=== PATIENT | female | born 1950 | race Caucasian/White ===

== ENCOUNTER → 2018-01-23 13:59 | Outpatient (CLI) | payer MEDICARE, BC, OTHER, SELFPAY ==
[2018-01-23 17:22] LABS: Absolute Lymphocyte Count 2.62 X10^3/ul (0.83-4.51); Absolute Neutrophil Count 6.2 X10^3/uL (2.0-7.7); Basophil# 0.03 X10^3/uL; Basophil% 0.3 % (0-1); Eosinophil# 0.17 X10^3/uL; Eosinophils% 1.7 % (0-5); Hematocrit 41.9 % (37-47); Hemoglobin 13.7 g/dl (12.0-15.0); Lymphocyte # 2.62 X10^3/ul (4.0); Lymphocyte % 26.9 % (19-41); Mean Corp Hgb Conc 32.7 g/gl (32-36); Mean Corpuscular Hgb 28.1 pg (27.0-32.0); Mean Corpuscular Volume 85.9 fL (81-99); Mean Platelet Vol. 8.9 fl (6.2-12.0); Monocyte# 0.71 X10^3/uL; Monocyte% 7.3 % (0-10); Neutrophil % 63.6 % (47-70); Platelet Count 346 K/mm3 (150-450); RBC Distribution Width SD 43.7 fl (35.1-43.9); Red Blood Count 4.88 M/mm3 (4.2-5.4); White Blood Count 9.8 K/mm3 (4.4-11.0)
[2018-01-23 17:23] LABS: POSITIVE COUNT NO; POSITIVE DIFFERENTIAL NO; POSITIVE MORPHOLOGY NO
[2018-01-23 17:46] LABS: ALB/GLOB Ratio 0.9 RATIO (0.9-2.4); AST(SGOT) 18 U/L (15-37); Alanine Aminotransfer ALT/SGPT 21 U/L (13-56); Albumin, Serum 3.6 g/dL (3.2-5.0); Alkaline Phosphatase 80 U/L (45-117); Anion Gap 11 (5-15); BUN 11 mg/dL (7-18); BUN/Creat Ratio 16.1 RATIO (10-20); Calcium,Total 8.9 mg/dL (8.5-10.1); Chloride 105 mmol/L (98-107); Creatinine, Serum 0.68 mg/dL (0.55-1.02); EST Glomerular Filtration Rate 91 mL/min (>60); Est Glom Filt Rate - Afr Amer 110 mL/min (>60); Globulin 3.9 g/dL (2.2-4.2); Glucose 88 mg/dL (74-106); Potassium 3.9 mmol/L (3.5-5.1); Protein, Total 7.5 g/dL (6.4-8.2); Sodium Level 141 mmol/L (136-145); Thyroid Stim Hormone (TSH) 1.73 uIU/mL (0.358-3.74)
[2018-01-24 08:39] LABS: Vitamin D,25 Hydroxy 55.2 ng/mL (29.95-100.01)
[2018-01-25 11:17] LABS: Hep C Antibodies <0.1 s/co ratio (0.0-0.9)
== END ==
PROVIDERS: Family Provider Family Medicine Geriatric Medicine; PCP Family Medicine Geriatric Medicine; Visit Provider Family Medicine Geriatric Medicine
DX: I10 Essential (primary) hypertension (principal); E55.9 Vitamin D deficiency, unspecified; Z13.89 Encounter for screening for other disorder
CPT/HCPCS: 36415; 80053; 82306; 84443; 85025; 86803

== ENCOUNTER → 2018-04-12 10:46 | Outpatient (CLI) | payer MEDICARE, BC, OTHER, SELFPAY ==
[2018-04-12 12:51] LABS: Anion Gap 7 (5-15); BUN 11 mg/dL (7-18); BUN/Creat Ratio 16.1 RATIO (10-20); Calcium,Total 9.1 mg/dL (8.5-10.1); Chloride 105 mmol/L (98-107); Creatinine, Serum 0.68 mg/dL (0.55-1.02); EST Glomerular Filtration Rate 91 mL/min (>60); Est Glom Filt Rate - Afr Amer 110 mL/min (>60); Glucose 131 mg/dL (74-106); Sodium Level 139 mmol/L (136-145)
[2018-04-12 14:05] LABS: Absolute Lymphocyte Count 2.02 X10^3/ul (0.83-4.51); Absolute Neutrophil Count 6.1 X10^3/uL (2.0-7.7); Basophil# 0.02 X10^3/uL; Basophil% 0.2 % (0-1); Eosinophil# 0.16 X10^3/uL; Eosinophils% 1.7 % (0-5); Hematocrit 44.3 % (37-47); Hemoglobin 14.5 g/dl (12.0-15.0); Lymphocyte # 2.02 X10^3/ul (4.0); Lymphocyte % 22.1 % (19-41); Mean Corp Hgb Conc 32.7 g/gl (32-36); Mean Corpuscular Hgb 28.2 pg (27.0-32.0); Mean Corpuscular Volume 86.2 fL (81-99); Mean Platelet Vol. 9.5 fl (6.2-12.0); Monocyte# 0.86 X10^3/uL; Monocyte% 9.4 % (0-10); Neutrophil # 6.07 X10^3/uL (2.7-7.7); Neutrophil % 66.4 % (47-70); Platelet Count 348 K/mm3 (150-450); RBC Distribution Width CV 14.5 % (11.6-14.6); RBC Distribution Width SD 46.2 fl (35.1-43.9); Red Blood Count 5.14 M/mm3 (4.2-5.4); White Blood Count 9.2 K/mm3 (4.4-11.0)
[2018-04-12 14:07] LABS: POSITIVE COUNT NO; POSITIVE DIFFERENTIAL NO; POSITIVE MORPHOLOGY NO
== END ==
PROVIDERS: Family Provider Family Medicine Geriatric Medicine; PCP Family Medicine Geriatric Medicine; Visit Provider Family Medicine Geriatric Medicine
DX: N39.0 Urinary tract infection, site not specified (principal); N20.0 Calculus of kidney; R10.9 Unspecified abdominal pain; R82.99 Other abnormal findings in urine; E16.2 Hypoglycemia, unspecified
CPT/HCPCS: 36415; 74176; 80048; 85025; 87086; 87088

== ENCOUNTER → 2019-01-23 08:49 | Outpatient (CLI) | payer MEDICARE, BC, OTHER, SELFPAY ==
[2019-01-23 10:47] LABS: Absolute Lymphocyte Count 2.59 X10^3/ul (0.83-4.51); Absolute Neutrophil Count 5.6 X10^3/uL (2.0-7.7); Basophil# 0.02 X10^3/uL; Basophil% 0.2 % (0-1); Eosinophil# 0.12 X10^3/uL; Eosinophils% 1.3 % (0-5); Hemoglobin 15.6 g/dl (12.0-15.0); Lymphocyte # 2.59 X10^3/ul (4.0); Lymphocyte % 28.7 % (19-41); Mean Corp Hgb Conc 33.2 g/gl (32-36); Mean Corpuscular Hgb 28.1 pg (27.0-32.0); Mean Corpuscular Volume 84.7 fL (81-99); Mean Platelet Vol. 9.6 fl (6.2-12.0); Monocyte# 0.68 X10^3/uL; Monocyte% 7.5 % (0-10); Neutrophil # 5.59 X10^3/uL (2.7-7.7); Neutrophil % 61.9 % (47-70); Platelet Count 376 K/mm3 (150-450); RBC Distribution Width SD 42.8 fl (35.1-43.9); Red Blood Count 5.55 M/mm3 (4.2-5.4)
[2019-01-23 10:48] LABS: POSITIVE COUNT NO; POSITIVE DIFFERENTIAL NO; POSITIVE MORPHOLOGY NO
[2019-01-23 11:03] LABS: ALB/GLOB Ratio 0.9 RATIO (0.9-2.4); AST(SGOT) 24 U/L (15-37); Alanine Aminotransfer ALT/SGPT 30 U/L (13-56); Albumin, Serum 3.7 g/dL (3.2-5.0); Alkaline Phosphatase 94 U/L (45-117); Anion Gap 7 (5-15); BUN 10 mg/dL (7-18); BUN/Creat Ratio 13.2 RATIO (10-20); Calcium,Total 8.7 mg/dL (8.5-10.1); Chloride 105 mmol/L (98-107); Creatinine, Serum 0.76 mg/dL (0.55-1.02); EST Glomerular Filtration Rate 81 mL/min (>60); Est Glom Filt Rate - Afr Amer 98 mL/min (>60); Globulin 3.9 g/dL (2.2-4.2); Glucose 162 mg/dL (74-106); Potassium 3.8 mmol/L (3.5-5.1); Protein, Total 7.6 g/dL (6.4-8.2); Sodium Level 138 mmol/L (136-145); Thyroid Stim Hormone (TSH) 2.12 uIU/mL (0.358-3.74)
[2019-01-23 11:15] LABS: Vitamin D,25 Hydroxy 61.2 ng/mL (29.95-100.01)
== END ==
PROVIDERS: Family Provider Family Medicine Geriatric Medicine; PCP Family Medicine Geriatric Medicine; Visit Provider Family Medicine Geriatric Medicine
DX: I10 Essential (primary) hypertension (principal); E55.9 Vitamin D deficiency, unspecified
CPT/HCPCS: 36415; 80053; 82306; 84443; 85025

== ENCOUNTER → 2020-02-10 09:59 | Outpatient (CLI) | payer MEDICARE, BC, OTHER, SELFPAY ==
[2016-12-09 15:53] VITALS: BMI 38.2
[2020-02-10 11:16] LABS: Absolute Lymphocyte Count 2.54 X10^3/uL (0.83-4.51); Absolute Neutrophil Count 5.5 X10^3/uL (2.0-7.7); Basophil# 0.05 X10^3/uL; Basophil% 0.6 % (0-1); Eosinophil# 0.13 X10^3/uL; Eosinophils% 1.5 % (0-5); Hematocrit 45.6 % (37-47); Hemoglobin 15.1 g/dL (12.0-15.0); Lymphocyte # 2.54 X10^3/ul (4.0); Lymphocyte % 28.7 % (19-41); Mean Corp Hgb Conc 33.1 g/dL (32-36); Mean Corpuscular Hgb 29.7 pg (27.0-32.0); Mean Corpuscular Volume 89.8 fL (81-99); Mean Platelet Vol. 9.2 fl (6.2-12.0); Monocyte# 0.53 X10^3/uL; NRBC Flagged by Analyzer 0 % (0-5); Neutrophil # 5.54 X10^3/uL (2.7-7.7); Neutrophil % 62.4 % (47-70); Platelet Count 346 K/mm3 (150-450); RBC Distribution Width CV 13.6 % (11.6-14.6); RBC Distribution Width SD 44.5 fl (35.1-43.9); Red Blood Count 5.08 M/mm3 (4.2-5.4); White Blood Count 8.9 K/mm3 (4.4-11.0)
[2020-02-10 11:44] LABS: Vitamin D,25 Hydroxy 65.8 ng/mL
[2020-02-10 11:57] LABS: AST(SGOT) 24 U/L (15-37); Alanine Aminotransfer ALT/SGPT 30 U/L (13-56); Albumin, Serum 3.7 g/dL (3.2-5.0); Alkaline Phosphatase 69 U/L (45-117); Anion Gap 5 (5-15); BUN 10 mg/dL (7-18); Calcium,Total 9.1 mg/dL (8.5-10.1); Chloride 106 mmol/L (98-107); Creatinine, Serum 0.72 mg/dL (0.55-1.02); EST Glomerular Filtration Rate 86 mL/min (>60); Est Glom Filt Rate - Afr Amer 104 mL/min (>60); Globulin 3.7 g/dL (2.2-4.2); Glucose 197 mg/dL (74-106); Potassium 4.2 mmol/L (3.5-5.1); Protein, Total 7.4 g/dL (6.4-8.2); Sodium Level 138 mmol/L (136-145); Thyroid Stim Hormone (TSH) 2.22 uIU/mL (0.358-3.74)
== END ==
PROVIDERS: PCP Family Medicine Geriatric Medicine; Visit Provider Family Medicine Geriatric Medicine
DX: I10 Essential (primary) hypertension (principal); E55.9 Vitamin D deficiency, unspecified
CPT/HCPCS: 36415; 80053; 82306; 84443; 85025

== ENCOUNTER → 2020-02-13 08:14 | Outpatient (CLI) | payer MEDICARE, BC, OTHER, SELFPAY ==
--- NOTE | 2020-02-13 08:18 | BI_ITS ---
MAMMOGRAPHY - BILATERAL SCREENING REASON FOR EXAM: Female, 70 years old. Routine annual screening examination. PERTINENT HISTORY: Mother with breast cancer. TECHNIQUE: Digital bilateral breast tyron (3D mammographic acquisition) in the CC and MLO projections. 2-D mediolateral oblique (MLO) and craniocaudad (CC) views of both breasts were obtained. CAD: Full Field Digital Mammography with Computer Added Detection was performed. COMPARISON: Comparison is made with prior examination of January 24, 2014 and January 19, 2012 FINDINGS: Breast Composition: There are scattered areas of fibroglandular density. There are no dominant masses or suspicious calcifications. Scattered diffuse bilateral calcifications. These have increased in number as compared to prior study. This most likely represents secretory calcifications. Stable appearance of the bilateral axillary lymph nodes. Stable 2 mm well-defined nodule in the upper lateral aspect of the right breast. No other significant abnormalities are identified. BI/SCREEN MAMM (CAD) W/TYRON BILAT IMPRESSION: Stable bilateral screening mammogram. Yearly follow-up mammogram recommended. (A) ASSESSMENT CATEGORY: BIRADS Category 2: Benign. A letter regarding these results will be sent to the patient by the facility within 30 days. Approximately 10% of breast cancers are not detected by mammography. A normal mammogram should not delay biopsy of a clinically suspicious abnormality. [id number] Electronically Signed: Johnathan Watson, at 9:47 EDT , Service support ,
== END ==
PROVIDERS: PCP Family Medicine Geriatric Medicine; Referring Provider Family Medicine Geriatric Medicine; Visit Provider Family Medicine Geriatric Medicine
DX: Z12.31 Encounter for screening mammogram for malignant neoplasm of breast (principal); Z80.3 Family history of malignant neoplasm of breast
CPT/HCPCS: 77063; 77067

== ENCOUNTER 2020-03-11 08:26 | Outpatient (RCR) | payer MEDICARE, BC, OTHER, SELFPAY | END 2020-03-27 23:59 | LOC: DC 08:26 | PROVIDERS: PCP Family Medicine Geriatric Medicine; Visit Provider Family Medicine Geriatric Medicine | DX: Z71.3 Dietary counseling and surveillance (principal); E11.9 Type 2 diabetes mellitus without complications | CPT/HCPCS: G0108 ==

== ENCOUNTER 2020-03-31 09:04 | Outpatient (RCR) | payer MEDICARE, BC, OTHER, SELFPAY ==
[2016-12-09 15:53] VITALS: BMI 38.2
== END 2020-04-27 23:59 ==
LOC: DC 09:04
PROVIDERS: PCP Family Medicine Geriatric Medicine; Visit Provider Family Medicine Geriatric Medicine
DX: Z71.3 Dietary counseling and surveillance (principal); E11.9 Type 2 diabetes mellitus without complications
CPT/HCPCS: 97802

== ENCOUNTER → 2020-05-12 11:53 | Outpatient (CLI) | payer MEDICARE, OTHER, SELFPAY ==
[2016-12-09 15:53] VITALS: BMI 38.2
[2020-05-12 12:56] LABS: Absolute Lymphocyte Count 2.47 X10^3/uL (0.83-4.51); Absolute Neutrophil Count 5.2 X10^3/uL (2.0-7.7); Basophil# 0.04 X10^3/uL; Basophil% 0.5 % (0-1); Eosinophil# 0.12 X10^3/uL; Eosinophils% 1.4 % (0-5); Hematocrit 42.7 % (37-47); Hemoglobin 14.3 g/dL (12.0-15.0); Lymphocyte # 2.47 X10^3/ul (4.0); Lymphocyte % 28.2 % (19-41); Mean Corp Hgb Conc 33.5 g/dL (32-36); Mean Corpuscular Hgb 29.3 pg (27.0-32.0); Mean Corpuscular Volume 87.5 fL (81-99); Mean Platelet Vol. 9.6 fl (6.2-12.0); Monocyte# 0.94 X10^3/uL; Monocyte% 10.7 % (0-10); NRBC Flagged by Analyzer 0 % (0-5); Neutrophil # 5.16 X10^3/uL (2.7-7.7); Neutrophil % 58.9 % (47-70); Platelet Count 331 K/mm3 (150-450); RBC Distribution Width CV 13.3 % (11.6-14.6); RBC Distribution Width SD 42.9 fl (35.1-43.9); Red Blood Count 4.88 M/mm3 (4.2-5.4); White Blood Count 8.8 K/mm3 (4.4-11.0)
[2020-05-12 13:11] LABS: Vitamin D,25 Hydroxy 44.2 ng/mL
[2020-05-12 13:29] LABS: AST(SGOT) 19 U/L (15-37); Alanine Aminotransfer ALT/SGPT 27 U/L (13-56); Albumin, Serum 3.7 g/dL (3.2-5.0); Alkaline Phosphatase 71 U/L (45-117); Anion Gap 5 (5-15); BUN 10 mg/dL (7-18); BUN/Creat Ratio 16.3 RATIO (10-20); Calcium,Total 9.2 mg/dL (8.5-10.1); Chloride 107 mmol/L (98-107); Creatinine, Serum 0.61 mg/dL (0.55-1.02); EST Glomerular Filtration Rate 102 mL/min (>60); Est Glom Filt Rate - Afr Amer 124 mL/min (>60); Globulin 3.7 g/dL (2.2-4.2); Glucose 94 mg/dL (74-106); Protein, Total 7.4 g/dL (6.4-8.2); Sodium Level 138 mmol/L (136-145)
== END ==
PROVIDERS: PCP Family Medicine Geriatric Medicine; Visit Provider Family Medicine Geriatric Medicine
DX: E55.9 Vitamin D deficiency, unspecified (principal); I10 Essential (primary) hypertension
CPT/HCPCS: 36415; 80053; 82306; 84443; 85025

== ENCOUNTER 2020-05-13 09:00 | Outpatient (RCR) | payer MEDICARE, OTHER, SELFPAY ==
[2016-12-09 15:53] VITALS: BMI 38.2
== END 2020-05-27 23:59 ==
LOC: DC 09:00
PROVIDERS: PCP Family Medicine Geriatric Medicine; Visit Provider Family Medicine Geriatric Medicine
DX: Z71.3 Dietary counseling and surveillance (principal); E11.9 Type 2 diabetes mellitus without complications
CPT/HCPCS: 97803; G0108

== ENCOUNTER 2020-05-25 16:05 | Emergency (ER) | payer MEDICARE, OTHER, SELFPAY ==
[2020-05-25 16:06] VITALS: BP 199/73; PULSE 84; RESP 24; TEMP 35.5; O2SAT 100; BMI 38.3
[2020-05-25] MEDS: HYDROmorphone 1 MG/ML Syringe IV (16:33)
[2020-05-25] MEDS: Ondansetron 4 MG/2 ML Vial IV (16:33)
--- NOTE | 2020-05-25 16:46 | CT_ITS ---
STUDY: CT ABDOMEN AND PELVIS WITHOUT CONTRAST REASON FOR EXAM: Female, 70 years old. LOWER ABD PAIN. THINKS HERNIA RUPTURED. 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 RADIATION DOSAGE (If Supplied By Facility): CTDIvol = ( 19.41 ) mGy, DLP = ( 970.08 ) mGycm TECHNIQUE: Transaxial images were obtained from the dome of the diaphragm to the symphysis pubis without oral contrast, and without intravenous contrast. Sagittal and coronal images were reconstructed. Individualized dose optimization techniques were used for this CT. COMPARISON: 04/12/2018 FINDINGS: The visualized lung bases are unremarkable. The visualized portions of the heart are within normal limits. Normal liver. There is non-visualization of the gallbladder, which may be secondary to either contraction or a prior cholecystectomy. Normal spleen. Normal pancreas. Normal bilateral adrenal glands. Normal right kidney. 2 mm nonobstructing stone in the lower pole the left kidney. No hydronephrosis, ureteral stone, or ureteral dilatation. There is a small hiatal hernia. Normal small intestine. Normal colon. The appendix is visualized and appears normal. Normal abdominal aorta. Normal inferior vena cava. Normal retroperitoneum. Normal urinary bladder. There is a small umbilical hernia containing fat. Another hernia of the midline in the anterior abdominal wall in the pelvis inferior the umbilicus containing a loop of small bowel but without bowel dilatation to suggest bowel obstruction. Status post bilateral hip arthroplasty which produces streak artifact obscures the pelvis. CT/Abdomen/Pelvis without Cont IMPRESSION: Hernia the midline in the anterior abdominal wall in the pelvis containing multiple loops of small bowel and some free fluid but no definite bowel obstruction. Electronically Signed: Alexander Goyal MD at 17:36 EDT Tel , Service support ,
[2020-05-25 17:36] VITALS: BP 153/76; PULSE 86; RESP 14; O2SAT 96
--- NOTE | 2020-05-25 18:03 | ED.VISSUMM ---
- ER Visit Summary Date of Service: 05/25/20 Chief Complaint: Cannot reduce hernia History of Present Illness: The patient is a [address] Esparza. 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 Following her hysterectomy she was left with a large lower abdominal hernia. She states that the hernia is never reduce. However, approximately 1 hour ago the area became firm and incredibly painful. Describes a sharp pain is 10 of 10 in severity. Is worsened by nothing and relieved by nothing. She is been nausea and vomited 4 times. No blood in her emesis. Her last bowel was today. She is had no melena hematochezia. Patient reports that over the past 2 days she has had increasing pain because they had been cleaning out storage units and she has been lifting things. However, she denies ever having anything like this before. Physical Examination: Vitals: Stable. Afebrile. General: Well-nourished and well-developed. Head: Normocephalic atraumatic. Neck: Supple, no lymphadenopathy. No JVD. Nontender. Cardiovascular: Regular rate and rhythm. No murmurs. Respiratory: No respiratory distress. Clear to auscultation bilaterally. Abdominal: Soft, large midline hernia just below her umbilicus that extends to both the right and left lower quadrants. There are herniated contents present in the left lower quadrant and it is firm. There is no overlying erythema, nondistended, normal bowel sounds. No guarding, rebound, or peritoneal signs. Back: Nontender. Extremities: Nontender, no edema. Skin: Normal color, no rash. Neurologic: Alert and oriented ?3. Cranial nerves II through XII are intact. Normal strength and sensation. Psych: Normal affect. Test Results: Clinical Impression(s) from Imaging Studies Abdomen/Pelvis CT 05/25/20 16:46 IMPRESSION: Hernia the midline in the anterior abdominal wall in the pelvis containing multiple loops of small bowel and some free fluid but no definite bowel obstruction. Electronically Signed: Alexander Goyal MD at 17:36 EDT Tel , Service support , Emergency Department Course and Treatment: Patient was given a dose of Dilaudid IV. Ice was placed over the hernia. It was then reduced. Patient's pain completely resolved. However, there are still clearly bowel in this hernia. It is no longer firm. It is soft. Treatment Plan: Patient was discussed with Dr. Tarango who reviewed the CT. This hernia is so large that it would not be amenable to repair. Given the fact the patient's pain has resolved she will be discharged instructions to follow-up with Dr. Tarango tomorrow in the office for another exam. She will be discharged with Saulo and Han. Instructed not to lift anything further. Return to the emergency department for any worsening symptoms. Disposition: To home in improved and stable condition. Impression: 1. Ventral hernia, incompletely reduced. This note was generated with kidthing dictation software. It may contain incorrect words, spelling, and punctuation that were not noted in review of the chart prior to signing ED Disposition - Plan for ED Patient: Disposition: Home or Assisted Living Instructions: ED Hernia Inguinal Prescriptions: Docusate Sodium [Colace] 100 mg PO DAILY #20 cap Prescription Printed Hydrocodone Bitart/Apap 5-325 [[place] 5MG-325MG] 1 tab PO Q4H PRN PRN 2 Days #10 tab PRN Reason: Pain Prescription Printed Referrals: Nereyda Tarango MD [STAFF PHYSICIAN] - 05/26/20 9:00 am
[2020-05-25 18:32] VITALS: BP 146/81
== END 2020-05-25 18:32 | disposition home or self-care (01) ==
LOC: ED 16:36
PROVIDERS: Emergency Provider Emergency Medicine; PCP Family Medicine Geriatric Medicine
DX: K43.9 Ventral hernia without obstruction or gangrene (principal); I10 Essential (primary) hypertension; E11.9 Type 2 diabetes mellitus without complications; Z79.84 Long term (current) use of oral hypoglycemic drugs; Z79.82 Long term (current) use of aspirin; Z79.899 Other long term (current) drug therapy
CPT/HCPCS: 74176; 96374; 96375; 99285; A4216; J2405

== ENCOUNTER 2020-06-10 09:00 | Outpatient (RCR) | payer MEDICARE, OTHER, SELFPAY | END 2020-06-27 23:59 | LOC: DC 09:00 | PROVIDERS: PCP Family Medicine Geriatric Medicine; Visit Provider Family Medicine Geriatric Medicine | DX: Z71.3 Dietary counseling and surveillance (principal); E11.9 Type 2 diabetes mellitus without complications | CPT/HCPCS: 97803; G0109 ==

== ENCOUNTER 2020-07-14 09:00 | Outpatient (RCR) | payer MEDICARE, OTHER, SELFPAY | END 2020-07-27 23:59 | LOC: DC 09:00 | PROVIDERS: PCP Family Medicine Geriatric Medicine; Visit Provider Family Medicine Geriatric Medicine | DX: Z71.3 Dietary counseling and surveillance (principal); E11.9 Type 2 diabetes mellitus without complications | CPT/HCPCS: 97803; G0109 ==

== ENCOUNTER 2020-07-30 10:22 | Outpatient (RCR) | payer MEDICARE, OTHER, SELFPAY | END 2020-08-27 23:59 | LOC: DC 10:22 | PROVIDERS: PCP Family Medicine Geriatric Medicine; Visit Provider Family Medicine Geriatric Medicine | DX: Z71.3 Dietary counseling and surveillance (principal); E11.9 Type 2 diabetes mellitus without complications | CPT/HCPCS: G0109 ==

== ENCOUNTER → 2020-08-12 11:06 | Outpatient (CLI) | payer MEDICARE, OTHER, SELFPAY ==
[2020-08-12 12:39] LABS: Absolute Lymphocyte Count 2.53 X10^3/uL (0.83-4.51); Absolute Neutrophil Count 5.7 X10^3/uL (2.0-7.7); Basophil# 0.05 X10^3/uL; Basophil% 0.5 % (0-1); Eosinophils% 1.1 % (0-5); Hematocrit 44.9 % (37-47); Hemoglobin 14.6 g/dL (12.0-15.0); Lymphocyte # 2.53 X10^3/ul (4.0); Lymphocyte % 27.1 % (19-41); Mean Corp Hgb Conc 32.5 g/dL (32-36); Mean Corpuscular Hgb 28.1 pg (27.0-32.0); Mean Corpuscular Volume 86.5 fL (81-99); Mean Platelet Vol. 9.5 fl (6.2-12.0); Monocyte# 0.92 X10^3/uL; Monocyte% 9.9 % (0-10); NRBC Flagged by Analyzer 0 % (0-5); Neutrophil # 5.72 X10^3/uL (2.7-7.7); Neutrophil % 61.2 % (47-70); Platelet Count 384 K/mm3 (150-450); RBC Distribution Width CV 12.9 % (11.6-14.6); RBC Distribution Width SD 40.7 fl (35.1-43.9); Red Blood Count 5.19 M/mm3 (4.2-5.4); White Blood Count 9.3 K/mm3 (4.4-11.0)
[2020-08-12 12:54] LABS: Vitamin D,25 Hydroxy 38.7 ng/mL
[2020-08-12 13:04] LABS: AST(SGOT) 15 U/L (15-37); Alanine Aminotransfer ALT/SGPT 26 U/L (13-56); Albumin, Serum 3.8 g/dL (3.2-5.0); Alkaline Phosphatase 85 U/L (45-117); Anion Gap 7 (5-15); BUN 11 mg/dL (7-18); BUN/Creat Ratio 16.4 RATIO (10-20); Chloride 107 mmol/L (98-107); Creatinine, Serum 0.67 mg/dL (0.55-1.02); EST Glomerular Filtration Rate 92 mL/min (>60); Est Glom Filt Rate - Afr Amer 111 mL/min (>60); Globulin 3.7 g/dL (2.2-4.2); Glucose 93 mg/dL (74-106); Potassium 3.9 mmol/L (3.5-5.1); Protein, Total 7.5 g/dL (6.4-8.2); Sodium Level 138 mmol/L (136-145); Thyroid Stim Hormone (TSH) 3.51 uIU/mL (0.358-3.74)
== END ==
PROVIDERS: PCP Family Medicine Geriatric Medicine; Visit Provider Family Medicine Geriatric Medicine
DX: E11.65 Type 2 diabetes mellitus with hyperglycemia (principal); I10 Essential (primary) hypertension; E55.9 Vitamin D deficiency, unspecified
CPT/HCPCS: 36415; 80053; 82306; 84443; 85025

== ENCOUNTER 2020-09-10 16:12 | Outpatient (RCR) | payer MEDICARE, OTHER, SELFPAY | END 2020-09-10 23:59 | disposition home or self-care (01) | LOC: DC 16:12 | PROVIDERS: PCP Family Medicine Geriatric Medicine; Visit Provider Family Medicine Geriatric Medicine | DX: Z71.3 Dietary counseling and surveillance (principal); E11.9 Type 2 diabetes mellitus without complications | CPT/HCPCS: G0109 ==

== ENCOUNTER 2020-11-03 15:03 | Outpatient (RCR) | payer MEDICARE, OTHER, SELFPAY ==
[2020-11-03] MEDS: COVID-19 VACC, MRNA(PFIZER)/PF 30 MCG/0.3 ML SYRINGE IM (08:46)
[2020-11-24] MEDS: COVID-19 VACC, MRNA(PFIZER)/PF 30 MCG/0.3 ML SYRINGE IM (08:36)
== END 2021-02-02 23:59 ==
LOC: IMMUN 15:03
PROVIDERS: PCP Family Medicine Geriatric Medicine; Visit Provider Family Medicine
DX: Z23 Encounter for immunization (principal)
CPT/HCPCS: 0001A; 0002A; 91300

== ENCOUNTER → 2020-11-12 10:46 | Outpatient (CLI) | payer MEDICARE, OTHER, SELFPAY ==
[2020-11-12 12:19] LABS: Absolute Lymphocyte Count 2.57 X10^3/uL (0.83-4.51); Absolute Neutrophil Count 5.8 X10^3/uL (2.0-7.7); Basophil# 0.05 X10^3/uL; Basophil% 0.5 % (0-1); Eosinophil# 0.14 X10^3/uL; Eosinophils% 1.5 % (0-5); Hemoglobin 14.9 g/dL (12.0-15.0); Lymphocyte # 2.57 X10^3/ul (4.0); Lymphocyte % 27.7 % (19-41); Mean Corp Hgb Conc 33.1 g/dL (32-36); Mean Corpuscular Hgb 28.9 pg (27.0-32.0); Mean Corpuscular Volume 87.4 fL (81-99); Mean Platelet Vol. 9.5 fl (6.2-12.0); Monocyte# 0.66 X10^3/uL; Monocyte% 7.1 % (0-10); NRBC Flagged by Analyzer 0 % (0-5); Neutrophil # 5.84 X10^3/uL (2.7-7.7); Neutrophil % 62.9 % (47-70); Platelet Count 391 K/mm3 (150-450); RBC Distribution Width CV 13.7 % (11.6-14.6); RBC Distribution Width SD 44.5 fl (35.1-43.9); Red Blood Count 5.15 M/mm3 (4.2-5.4); White Blood Count 9.3 K/mm3 (4.4-11.0)
[2020-11-12 12:37] LABS: Vitamin D,25 Hydroxy 31.1 ng/mL
[2020-11-12 12:39] LABS: AST(SGOT) 19 U/L (15-37); Alanine Aminotransfer ALT/SGPT 29 U/L (13-56); Albumin, Serum 3.8 g/dL (3.2-5.0); Alkaline Phosphatase 91 U/L (45-117); Anion Gap 5 (5-15); BUN 13 mg/dL (7-18); BUN/Creat Ratio 18.3 RATIO (10-20); Calcium,Total 8.7 mg/dL (8.5-10.1); Chloride 106 mmol/L (98-107); Creatinine, Serum 0.71 mg/dL (0.55-1.02); EST Glomerular Filtration Rate 86 mL/min (>60); Est Glom Filt Rate - Afr Amer 105 mL/min (>60); Globulin 3.7 g/dL (2.2-4.2); Glucose 146 mg/dL (74-106); Potassium 3.7 mmol/L (3.5-5.1); Protein, Total 7.5 g/dL (6.4-8.2); Sodium Level 138 mmol/L (136-145); Thyroid Stim Hormone (TSH) 2.18 uIU/mL (0.358-3.74)
== END ==
PROVIDERS: PCP Family Medicine Geriatric Medicine; Visit Provider Family Medicine Geriatric Medicine
DX: E11.65 Type 2 diabetes mellitus with hyperglycemia (principal); I10 Essential (primary) hypertension; E55.9 Vitamin D deficiency, unspecified
CPT/HCPCS: 36415; 80053; 82306; 84443; 85025

== ENCOUNTER 2020-12-29 19:37 | Inpatient (IN) | payer MEDICARE, OTHER, SELFPAY ==
[2020-12-29 19:38] VITALS: BP 153/91; PULSE 89; RESP 14; TEMP 35.7; O2SAT 99; BMI 36.0
--- NOTE | 2020-12-29 20:05 | EDS_ITS ---
HPI HPI - GI History of Present Illness Chief Complaint: Other, Pain/Inj Detail of Chief Complaint: Left lower quadrant abdominal pain with a history of a known hernia. Informant: patient Abdominal Pain/Flank Pain Onset: Yesterday Context: Sudden Onset Timing: Continuous Location: LLQ Current Severity: Moderate Maximum Severity: Moderate Nausea/Vomiting/Emesis GI Symptom: Positive for Nausea and Vomiting Onset: Today Quality: Positive for Nonbilious; Negative for Blood streaks, Coffee ground and Hematemesis Severity: Mild Diarrhea/Melena/Hematochezia GI Symptom: Negative for Diarrhea Associated Symptoms Associated Symptoms: Negative for Dysuria Narrative Narrative: 7-year-old female with a known left lower quadrant abdominal hernia. Patient states that she saw Dr. Nereyda Tarango in the past to have it repaired they were waiting for her to have some weight loss. Patient states she has been lifting things and yesterday started having pain left lower quadrant and that the hernia was popping out. Today she is noticed worse pain with nausea and vomiting. She denies any diarrhea or fever. No dysuria. Prior similar symptoms: Yes Recent Illness/Hospitalization: No PFSH PFSH Medical History (Updated 12/29/20 @ 20:[address] Toribio Thorpe MD) Diabetes Hernia High cholesterol History of tumor Hypertension Home Medications atorvastatin 10 mg PO QHS 05/12/15 [History Last Taken 05/24/20] metoprolol tartrate 50 mg PO BID 05/12/15 [History Last Taken 05/25/20] aspirin 81 mg PO DAILY@0800 05/25/20 [History Last Taken 05/25/20] cholecalciferol (vitamin D3) 1,000 unit PO DAILY 05/25/20 [History Last Taken 05/25/20] metformin 500 mg PO DAILY 05/25/20 [History Last Taken 05/25/20] Allergy/AdvReac Type Severity Reaction Status Date / Time adhesive tape Allergy Rash Verified 12/29/20 19:38 Penicillins [PCN] Allergy Hives Verified 12/29/20 19:38 Surgical History (Updated 12/29/20 @ 21:[address] Radha Alfaro MD) H/O: hysterectomy History of bilateral hip replacements History of cholecystectomy Social History Smoking Status: Never smoker ROS ROS ED Review of Systems ROS Unobtainable: Denies due to encephalopathy Constitutional Constitutional ED: Denies chills or fever(s) ENT ENT ED: Denies sore throat Cardiovascular Cardiovascular: Denies chest pain Respiratory/Chest Respiratory/Chest: Denies dyspnea Gastrointestinal Gastrointestinal: Reports abdominal pain, nausea and vomiting; Denies co nstipation, diarrhea or melena Genitourinary Genitourinary ED: Denies dysuria or hematuria Musculoskeletal Musculoskeletal: Denies myalgias Integumentary Denies rash Neurologic Neurologic: Denies headache(s) Psychiatric Psychiatric: Denies depression Endocrine Endocrinology: Denies polyuria Hematologic/Lymphatic Hematologic/Lymphatic: Denies easy bruising Allergic/Immunologic Allergic/Immunologic ED: Denies urticaria EXAM Physical Exam Narrative Exam Narrative: Older female complaining of left lower quadrant abdominal pain. Vital signs are stable afebrile. She does not look septic or toxic. Lungs are clear. Heart regular rhythm no murmur. Abdomen soft. Obvious incarcerated hernia left lower quadrant. Tender to palpation. I cannot reduce it. The rest of her abdomen is nontender. Moving all 4 extremities. No edema. Neurologically she is awake alert with no focal motor deficits. Const Vital Signs: 12/29/20 19:38 12/29/20 21:03 12/29/20 21:16 Temperature 96.2 F L 98.5 F 98.5 F Temperature Source Temporal Oral Oral Pulse Rate 89 88 88 Respiratory Rate 14 16 16 Blood Pressure 153/91 H 161/78 H 161/78 H Blood Pressure Mean 111 105 105 Blood Pressure Source Monitor Blood Pressure Position Sitting Blood Pressure Location Right Arm Pulse Ox 99 96 96 Oxygen Delivery Method Room Air Room Air Room Air Positive well nourished and well developed General Appearance ED: well developed HEENT normocephalic and atraumatic Eyes PERRL and EOMs intact bilaterally Neck no lymphadenopathy and supple Resp normal respiratory effort and clear to auscultation bilaterally Cardio regular rate, regular rhythm and no murmurs GI GI Narrative: Left lower quadrant incarcerated hernia is tender to palpation. I am unable to reduce it. Auscultation: normoactive bowel sounds Palpation: soft and tender Back/Spine no CVA tenderness Extremity full ROM General Extremety ED: Negative for edema or tenderness General Extremity: Negative for edema Neuro moves all extremities Sensorium / Orientation: alert and oriented to person Psych mental status grossly normal Skin Rashes: no rashes MDM MDM MDM Narrative Medical decision making narrative: Patient with a known left lower quadrant incisional hernia from her prior hysterectomy. States that she has had pain with this since yesterday. Today had increasing pain with nausea and vomiting. The hernia appears to be incarcerated I am unable to reduce it. I have already spoken to general surgery patient transition specialist. The patient is undergoing laboratory work- up with a CAT scan of abdomen and pelvis. She is receiving IV morphine and Zofran for pain and nausea. Depending on the patient's progression she may need to go to the OR tonight for emergent reduction versus delayed repair. CBC shows an elevated white count of 15.9 with a normal hemoglobin. Chemistries unremarkable with a normal creatinine and gap. CT abdomen pelvis shows left lower quadrant hernia with contained bowel. Formal read is pending. General surgeon is in the emergency department is already evaluated the patient and reviewed her CAT scan and the patient will be taken to the OR for incarcerated hernia. Patient currently is resting comfortably. She has been informed of her test results and the treatment plan. Lab Data Attestation: I reviewed the patient's lab results. Labs: Laboratory Results - last 24 hr 12/29/20 12/29/20 12/29/20 20:08 20:08 21:12 WBC 15.9 H RBC 5.23 Hgb 14.9 Hct 43.9 MCV 83.9 MCH 28.5 MCHC 33.9 RDW Std Deviation 40.7 RDW Coeff of James 13.3 Plt Count 336 MPV 8.9 Immature Gran % (Auto) 0.400 Neut % (Auto) 80.5 H Lymph % (Auto) 13.6 L Branch % (Auto) 4.5 Eos % (Auto) 0.6 Baso % (Auto) 0.4 Absolute Neuts (auto) 12.8 H Absolute Lymphs (auto) 2.17 Nucleated RBC % 0 Sodium 137 Potassium 3.6 Chloride 102 Carbon Dioxide 27.0 Anion Gap 8 BUN 12 Creatinine 0.90 Estim Creat Clear Calc 50.23 Est GFR (MDRD) Af Amer 79 Est GFR (MDRD) Non-Af 66 BUN/Creatinine Ratio 13.3 Glucose 148 H Calcium 9.4 POC Glucose 132 H EKG Initial EKG: Attestation: I personally reviewed and interpreted this EKG as follows: Interpretation: Sinus Rhythm and No Acute Injury Pattern Comments: Preop EKG read by myself shows a normal sinus rhythm rate of 87 with no acute signs of AK nor ischemia. Discharge Plan Triage Chief Complaint: Other, Pain/Inj ED Provider: Toribio Thorpe Dx/Rx/DC Orders Clinical Impression: Incarcerated hernia Primary Care Provider: King Esparza Chi
[2020-12-29] MEDS: morphine 8 MG/ML Syringe 6 MG IV (20:12)
[2020-12-29] MEDS: 0.9% Normal Saline 1,000 ML 1000 ML IV (20:12)
[2020-12-29] MEDS: Ondansetron 4 MG/2 ML Vial IV (20:12)
[2020-12-29 20:18] LABS: Absolute Lymphocyte Count 2.17 X10^3/uL (0.83-4.51); Absolute Neutrophil Count 12.8 X10^3/uL (2.0-7.7); Basophil# 0.06 X10^3/uL; Basophil% 0.4 % (0-1); Eosinophil# 0.09 X10^3/uL; Eosinophils% 0.6 % (0-5); Hematocrit 43.9 % (37-47); Hemoglobin 14.9 g/dL (12.0-15.0); Lymphocyte # 2.17 X10^3/ul (0.83-4.51); Lymphocyte % 13.6 % (19-41); Mean Corp Hgb Conc 33.9 g/dL (32-36); Mean Corpuscular Hgb 28.5 pg (27.0-32.0); Mean Corpuscular Volume 83.9 fL (81-99); Mean Platelet Vol. 8.9 fl (6.2-12.0); Monocyte# 0.71 X10^3/uL; Monocyte% 4.5 % (0-10); NRBC Flagged by Analyzer 0 % (0-5); Neutrophil # 12.82 X10^3/uL (2.7-7.7); Neutrophil % 80.5 % (47-70); Platelet Count 336 K/mm3 (150-450); RBC Distribution Width CV 13.3 % (11.6-14.6); RBC Distribution Width SD 40.7 fl (35.1-43.9); Red Blood Count 5.23 M/mm3 (4.2-5.4); White Blood Count 15.9 K/mm3 (4.4-11.0)
[2020-12-29 20:26] LABS: Anion Gap 8 (5-15); BUN 12 mg/dL (7-18); BUN/Creat Ratio 13.3 RATIO (10-20); Calcium,Total 9.4 mg/dL (8.5-10.1); Chloride 102 mmol/L (98-107); EST Glomerular Filtration Rate 66 mL/min (>60); Est Glom Filt Rate - Afr Amer 79 mL/min (>60); Estimated Creatinine Clearance 50.23 ml/min; Glucose 148 mg/dL (74-106); Potassium 3.6 mmol/L (3.5-5.1); Sodium Level 137 mmol/L (136-145)
--- NOTE | 2020-12-29 20:45 | CT_ITS ---
STUDY: CT ABDOMEN AND PELVIS WITH CONTRAST REASON FOR EXAM: Female, 70 years old. incarcerated hernia LLQ RADIATION DOSAGE (If Supplied By Facility): CTDIvol = ( 18.78 ) mGy, DLP = ( 1342.19 ) mGycm TECHNIQUE: Transaxial images were obtained from the dome of the diaphragm to the symphysis pubis without oral contrast. IV 100mL Isovue-370 was administered. Sagittal and coronal images were reconstructed. Right Individualized dose optimization techniques were used for this CT. COMPARISON: 05/25/2020. FINDINGS: The visualized lung bases are unremarkable. The visualized portions of the heart are within normal limits. There is fatty infiltration of liver. There is hepatomegaly. Absent gallbladder. Atrophy of the pancreas. Normal spleen. Adrenal glands are unremarkable. Kidneys are unremarkable. Evaluation of the GI tract is limited by the absence of oral contrast. There is a small hiatal hernia which is stable. Cannot exclude stomach wall thickening. Multiple loops of fluid-filled small bowel are distended in the mid and lower abdomen. They measure as much as 3 cm across. Again seen is a large left inguinal hernia containing loops of bowel. This seems to be causing at least partial small bowel obstruction. Normal caliber distal ileum. Normal caliber large bowel. Diverticulosis without diverticulitis. Small fat-containing ventral hernias. Evaluation of GI tract is limited by metal artifact across the pelvis. Grossly normal bladder. There are diffuse degenerative changes of the visualized lumbar spine. CT/Abdomen/Pelvis W IV Cont ONLY IMPRESSION: Large left inguinal hernia containing bowel loops and apparently causing at least partial obstruction. Several other chronic findings as above. Electronically Signed: David Quigley MD at 21:33 EDT , Service support ,
[2020-12-29 21:03] VITALS: BP 161/78; PULSE 88; RESP 16; TEMP 36.9; O2SAT 96; BMI 36.0
--- NOTE | 2020-12-29 21:03 | HP.PCM_ITS ---
HPI - General HPI Narrative NILE SIERRA, is a 70 F who presents due to incarcerated incisional hernia. Patient has a white blood cell count of 15.9, CT abdomen pelvis does show dilated loops of bowel in the left lower quadrant hernia causing obstruction. Patient states that until this afternoon she was normally able to reduce. Patie nt states she did do some heavy lifting over the weekend. Patient has seen Dr. Tarango as an outpatient for possible elective repair with plan was to lose some weight prior to surgery. Patient has had nausea and vomiting with this. Patient states her blood sugars are usually fairly well controlled at 120. [facility] Medical History (Updated 12/29/20 @ 20:[address] Toribio Thorpe MD) Diabetes Hernia High cholesterol History of tumor Hypertension Home Medications atorvastatin 10 mg PO QHS 05/12/15 [History Last Taken 05/24/20] metoprolol tartrate 50 mg PO BID 05/12/15 [History Last Taken 05/25/20] aspirin 81 mg PO DAILY@0800 05/25/20 [History Last Taken 05/25/20] cholecalciferol (vitamin D3) 1,000 unit PO DAILY 05/25/20 [History Last Taken 05/25/20] metformin 500 mg PO DAILY 05/25/20 [History Last Taken 05/25/20] Allergy/AdvReac Type Severity Reaction Status Date / Time adhesive tape Allergy Rash Verified 12/29/20 19:38 Penicillins [PCN] Allergy Hives Verified 12/29/20 19:38 Surgical History (Updated 12/29/20 @ 21:[address] Radha Alfaro MD) H/O: hysterectomy History of bilateral hip replacements History of cholecystectomy Social History Smoking Status: Never smoker ROS Constitutional Constitutional: Reports anorexia Gastrointestinal Gastrointestinal: Reports abdominal pain, anorexia, nausea and vomiting Vital Signs Vital Signs Vital Signs: 12/29/20 19:38 Temperature 96.2 F L Temperature Source Temporal Pulse Rate 89 Respiratory Rate 14 Blood Pressure 153/91 H Blood Pressure Mean 111 Pulse Ox 99 Oxygen Delivery Method Room Air Physical Exam Const alert, oriented x3 and no apparent distress HEENT normocephalic and head/scalp atraumatic Resp normal respiratory effort Cardio regular rate GI soft to palpation; Negative for non-distended Inspection: central obesity Palpation: tender LLQ and hernia other (non reducible lower midline to left incisional hernia); Negative for guarding Extremity no clubbing, cyanosis or edema Neuro CN's II-XII intact bilaterally Psych mental status grossly normal Lab / Micro Data Result Diagrams: 12/29/20 20:08 12/29/20 20:08 Labs: Laboratory Results - last 24 hr 12/29/20 12/29/20 20:08 20:08 WBC 15.9 H RBC 5.23 Hgb 14.9 Hct 43.9 MCV 83.9 MCH 28.5 MCHC 33.9 RDW Std Deviation 40.7 RDW Coeff of James 13.3 Plt Count 336 MPV 8.9 Immature Gran % (Auto) 0.400 Neut % (Auto) 80.5 H Lymph % (Auto) 13.6 L Calloway % (Auto) 4.5 Eos % (Auto) 0.6 Baso % (Auto) 0.4 Absolute Neuts (auto) 12.8 H Absolute Lymphs (auto) 2.17 Nucleated RBC % 0 Sodium 137 Potassium 3.6 Chloride 102 Carbon Dioxide 27.0 Anion Gap 8 BUN 12 Creatinine 0.90 Estim Creat Clear Calc 50.23 Est GFR (MDRD) Af Amer 79 Est GFR (MDRD) Non-Af 66 BUN/Creatinine Ratio 13.3 Glucose 148 H Calcium 9.4 Assessment & Plan Assessment/Plan (1) Incarcerated hernia: Status: Acute Code(s): K46.0 - Unspecified abdominal hernia with obstruction, without gangrene Plan: We will plan to repair of incarcerated incisional hernia possible bowel resection. Did discuss the CAT scan findings as well as the procedure with the patient and her . Including risk but not limited to bleeding, infection, need for a bowel resection, recurrence of the hernia. Did discuss that did the possible strangulation would not plan to use mesh at this time would plan to use permanent sutures. Did also discuss patient does have fat-containing hernia above her umbilicus this is from the area with the incarcerated bowel. Would plan to just do the excision at the lower midline due to the possibility of strangulated bowel. Patient no further questions at this time. Radha Alfaro M.D. Pager: [phone] [facility] [address] [place] [address], [facility]patient [facility], [address] [place] [address] Office: [phone] Procedure Criteria Procedure Type: Elective (Patient has already had both Covid vaccines) COVID Risk Discussion: The surgeon/proceduralist and patient have discussed in detail the risk of exposure to and/or potential harm posed by the COVID-19 virus with having a surgery/procedure at this time versus the risk of delaying the surgery/procedure. It is not possible to know either the risk of delaying the surgery or procedure or chance of getting an infection with perfect accuracy, but a joint decision was made between the patient and the surgeon/proceduralist to proceed at this time with the scheduled surgery/procedure as indicated on the consent form.
--- NOTE | 2020-12-29 21:09 | EKG12_ITS ---
Test Reason : PRE-OP Blood Pressure : / mmHG Vent. Rate : 087 BPM Atrial Rate : 087 BPM P-R Int : 160 ms QRS Dur : 088 ms QT Int : 398 ms P-R-T Axes : 048 -12 021 degrees QTc Int : 478 ms Normal sinus rhythm Normal ECG Confirmed by ALLIE ESTRADA, ADRIAN ([id number]), writer editor SAE HAMMER ([id number]) on 12/30/2020 9:27:27 AM Referred By: Radha Alfaro Confirmed By:ADRIAN KELLEY MD
[2020-12-29 21:16] VITALS: BP 161/78; PULSE 88; RESP 16; TEMP 36.9; O2SAT 96
[2020-12-29 21:16] LABS: Bedside Glucose 132 mg/dL (70-110)
--- NOTE | 2020-12-29 21:16 | ED.RN ---
PULLED OLD TUTU FOR
[2020-12-29] MEDS: 0.9% Normal Saline 1,000 ML 100 ML IV ×2 (21:45→23:30)
--- NOTE | 2020-12-29 21:45 | HERN_PTH ---
PATIENT: NILE SIERRA LOC: MS3 U#:[id number] AGE/SX: 70/F ROOM: KY312 RE12/30/[address]: Dr. Radha Alfaro MD : 1950 BED: 1 DIS: 12/30/2020 SPEC #: [id number] RECD: 12/30/20 07:03 STATUS: PARAS KELLEY #: [id number] MIKE: 12/29/20 21:[address]: Radha Alfaro DEPT: SURGICAL PATHOLOGY RECD BY: Richard Bocanegra ENTERED: 12/30/20 09:36 SP TYPE: Hernia OTHR DR: Dr. King Esparza MD Tissues: HERNIA Procedures: Surgery Specimen Level II HEADER OPERATION: Hernia, incisional repair with mesh PRE-OP DIAGNOSIS: Incarcerated incisional hernia TISSUE SUBMITTED: Hernia sac MICROSCOPIC DIAGNOSIS Hernia sac: Pieces of fibroadipose and fibroconnective tissue, consistent with hernia sac. SJ:lorenzo 12/31/2020 MICROSCOPIC DESCRIPTION Slides are reviewed. GROSS DESCRIPTION Received in fixative is one container labeled with the patient's name and designated hernia sac. The specimen consists of a piece of soft tissue measuring 9 x 6 x 1.5 cm. No mass lesion is identified. Also present in the container are two small pieces of soft tissue measuring in aggregate 2 x 2 x 0.5 cm. Onsite Health Coach sections are submitted in one cassette. / RONY:lorenzo 12/30/20 TC:5 CPT: 08193
[2020-12-29] MEDS: metroNIDAZOLE 500 MG/100 ML BAG 100 MG IV (22:06)
[2020-12-29] MEDS: Ciprofloxacin 400 MG/200 ML BAG 200 MG IV (22:15)
--- NOTE | 2020-12-29 23:28 | OP.PCM_ITS ---
Report of Operation Date of Procedure: 12/29/20 Pre-Operative Diagnosis: Incarcerated possible strangulated incisional hernia Post-Operative Diagnosis: Incarcerated incisional hernia Surgery/Procedure Performed:: Repair of incarcerated incisional hernia home health occupational therapist: Gordon Marquis Type of Anesthesia: General/Supplemental Anesthesiologist: Britney Gillis Special Medications: Cipro 400 mg IV x1, Flagyl 500 mg IV x1 Specimen's removed: Hernia sac Estimated Blood Loss (mL): 10 cc Fluids Replaced: 1000 cc Description of Procedure: Patient was brought into the room placed supine on the operating table. A timeout was completed verifying correct patient, procedure, site, positioning, special equipment prior to beginning procedure. General anesthesia was induced. Briones catheter was placed. Abdomen was prepped and draped in usual sterile fashion. Previous inferior midline incision was reincised with a 15 blade scalpel. This was deepened with electrocautery to the fascia. Hernia sac was densely adherent to the surrounding tissue. The hernia sac was carefully freed using Metzenbaum scissors and sent to pathology. The small bowel was able to be reduced back into the abdomen and was viable. That peritoneum was able to be closed with 3-0 Vicryl. Fascia was closed with [id number] Prolene sutures x3. Wound was irrigated with saline. Hemostasis was achieved with electrocautery. space was attempted to be closed interrupted 3-0 Vicryl sutures. Wound was closed with 3-0 subdermal Vicryl sutures. Skin was closed with 4-0 Monocryl Steri- Strips and OpSite. Patient was extubated and Briones catheter removed. Patient tolerated procedure well was taken to the postanesthesia care unit in stable condition. Grafts/Implants Used: none Complications none
[2020-12-29] MEDS: Bupiv/Epi 0.25% 30 ML Vial (23:37)
[2020-12-29 23:53] VITALS: BP 161/77; BP 161/78; PULSE 101; RESP 16; TEMP 36.6; O2SAT 88
[2020-12-30] VITALS (11 sets, daily range): BP systolic 111–167; BP diastolic 60–88; PULSE 84–111; RESP 16–18; TEMP 36.3–36.6; O2SAT 91–99; BMI 37.1
[2020-12-30 00:11] LABS: Bedside Glucose 187 mg/dL (70-110)
[2020-12-30] MEDS: Lactated Ringers 1,000 ML 120 ML IV (01:34)
[2020-12-30] MEDS: Metoprolol Tartrate 50 MG Tablet PO ×2 (01:34→09:11)
[2020-12-30 05:34] LABS: Absolute Lymphocyte Count 0.55 X10^3/uL (0.83-4.51); Absolute Neutrophil Count 16.1 X10^3/uL (2.0-7.7); Basophil# 0.02 X10^3/uL; Basophil% 0.1 % (0-1); Hematocrit 42.7 % (37-47); Hemoglobin 13.8 g/dL (12.0-15.0); Lymphocyte # 0.55 X10^3/ul (0.83-4.51); Lymphocyte % 3.3 % (19-41); Mean Corp Hgb Conc 32.3 g/dL (32-36); Mean Corpuscular Hgb 28.9 pg (27.0-32.0); Mean Corpuscular Volume 89.3 fL (81-99); Mean Platelet Vol. 8.9 fl (6.2-12.0); Monocyte# 0.12 X10^3/uL; Monocyte% 0.7 % (0-10); NRBC Flagged by Analyzer 0 % (0-5); Neutrophil # 16.05 X10^3/uL (2.7-7.7); Neutrophil % 95.2 % (47-70); POSITIVE DIFFERENTIAL YES; Platelet Count 307 K/mm3 (150-450); RBC Distribution Width CV 13.6 % (11.6-14.6); RBC Distribution Width SD 44.5 fl (35.1-43.9); Red Blood Count 4.78 M/mm3 (4.2-5.4); White Blood Count 16.9 K/mm3 (4.4-11.0)
[2020-12-30 05:39] LABS: Differential Indicated SCAN CRITERIA MET
[2020-12-30 05:55] LABS: Anion Gap 9 (5-15); BUN 9 mg/dL (7-18); BUN/Creat Ratio 11.2 RATIO (10-20); Calcium,Total 8.2 mg/dL (8.5-10.1); Chloride 106 mmol/L (98-107); EST Glomerular Filtration Rate 75 mL/min (>60); Est Glom Filt Rate - Afr Amer 91 mL/min (>60); Glucose 185 mg/dL (74-106); Potassium 3.7 mmol/L (3.5-5.1); Sodium Level 138 mmol/L (136-145)
[2020-12-30] MEDS: Insulin Lispro 100 UNIT/ML INSULN.PEN SC ×2 (06:28→11:52)
[2020-12-30 06:35] LABS: Bedside Glucose 193 mg/dL (70-110)
--- NOTE | 2020-12-30 07:37 | PCM.PN.SRG ---
Subjective Subjective: Patient is doing well, denies any abdominal pain denies any flatus. Abdominal binder placed to help prevent seroma Objective Data Objective Data Vital Signs: Vital Signs Temp Pulse Resp BP Pulse Ox 97.6 F L 95 16 139/72 H 94 12/30/20 05:03 12/30/20 05:03 12/30/20 05:03 12/30/20 05:03 12/30/20 05:03 Oxygen Flow Rate (L/min) 2 Oxygen Delivery Method Nasal Cannula Weight: 216 lb 7.903 oz Body Mass Index (BMI) 37.1 Finger Stick Blood Glucose 187 Intake & Output: Intake and Output for Last 24 Hours 12/28/20 12/29/20 12/30/20 23:59 23:59 23:59 Intake Total 1999 / 1999 616.67 / 616.67 Output Total 150 / 150 400 / 400 Balance 1850 / 1850 216.67 / 216.67 Lab / Micro Data Result Diagrams: 12/30/20 05:18 12/30/20 05:18 Labs: Laboratory Results - last 24 hr 12/29/20 12/29/20 12/29/20 20:08 20:08 21:12 WBC 15.9 H RBC 5.23 Hgb 14.9 Hct 43.9 MCV 83.9 MCH 28.5 MCHC 33.9 RDW Std Deviation 40.7 RDW Coeff of James 13.3 Plt Count 336 MPV 8.9 Immature Gran % (Auto) 0.400 Neut % (Auto) 80.5 H Lymph % (Auto) 13.6 L [place] % (Auto) 4.5 Eos % (Auto) 0.6 Baso % (Auto) 0.4 Absolute Neuts (auto) 12.8 H Absolute Lymphs (auto) 2.17 Nucleated RBC % 0 Sodium 137 Potassium 3.6 Chloride 102 Carbon Dioxide 27.0 Anion Gap 8 BUN 12 Creatinine 0.90 Estim Creat Clear Calc 50.23 Est GFR (MDRD) Af Amer 79 Est GFR (MDRD) Non-Af 66 BUN/Creatinine Ratio 13.3 Glucose 148 H Calcium 9.4 POC Glucose 132 H 12/30/20 12/30/20 12/30/20 00:06 05:18 05:18 WBC 16.9 H RBC 4.78 Hgb 13.8 Hct 42.7 MCV 89.3 D MCH 28.9 MCHC 32.3 RDW Std Deviation 44.5 H RDW Coeff of James 13.6 Plt Count 307 MPV 8.9 Immature Gran % (Auto) 0.700 Neut % (Auto) 95.2 H Lymph % (Auto) 3.3 L [place] % (Auto) 0.7 Eos % (Auto) 0.0 Baso % (Auto) 0.1 Absolute Neuts (auto) 16.1 H Absolute Lymphs (auto) 0.55 L Nucleated RBC % 0 Sodium 138 Potassium 3.7 Chloride 106 Carbon Dioxide 23.0 Anion Gap 9 BUN 9 Creatinine 0.80 Estim Creat Clear Calc 56.50 Est GFR (MDRD) Af Amer 91 Est GFR (MDRD) Non-Af 75 BUN/Creatinine Ratio 11.2 Glucose 185 H Calcium 8.2 L POC Glucose 187 H 12/30/20 06:22 WBC RBC Hgb Hct MCV MCH MCHC RDW Std Deviation RDW Coeff of James Plt Count MPV Immature Gran % (Auto) Neut % (Auto) Lymph % (Auto) [place] % (Auto) Eos % (Auto) Baso % (Auto) Absolute Neuts (auto) Absolute Lymphs (auto) Nucleated RBC % Sodium Potassium Chloride Carbon Dioxide Anion Gap BUN Creatinine Estim Creat Clear Calc Est GFR (MDRD) Af Amer Est GFR (MDRD) Non-Af BUN/Creatinine Ratio Glucose Calcium POC Glucose 193 H Radiography Diagnostic Testing: Radiology Impression Abdomen/Pelvis CT 12/29/20 20:45 IMPRESSION: Large left inguinal hernia containing bowel loops and apparently causing at least partial obstruction. Several other chronic findings as above. Electronically Signed: David Quigley MD at 21:33 EDT , Service support , Physical Exam Const alert, oriented x3 and no apparent distress Resp normal respiratory effort Cardio regular rate GI soft to palpation; Negative for non-distended Palpation: tender other (At incision, dressed clean dry and intact, abdominal binder on); Negative for guarding Psych mental status grossly normal Assessment & Plan Assessment/Plan (1) History of hernia surgery: Status: Acute Code(s): Z98.890 - Other specified postprocedural states; Z87.19 - Personal history of other diseases of the digestive system Plan: Patient is doing well. Patient denies any nausea or vomiting or abdominal pain. Patient's leukocytosis is almost 17 question if that was higher prior to surgery and reactive. If patient does well today tolerating diet ambulates and vital signs remained stable may be able to be DC'd and will recheck CBC in 2 days. Radha Alfaro M.D. Pager: [phone] [facility] [address] [place] [address], [facility], [address] [place] [address] Office: [phone]
--- NOTE | 2020-12-30 10:35 | CASEMGMT ---
RN CM Face to Face with patient for initial transition planning/care coordination assessment. RN CM introduced self and role at [facility]. Patient sitting in chair, alert and oriented. Patient willing to participate in assessment and is able to answer all questions appropriately. Care providers, pharmacy, and demographics verified. Patient wishes to discharge home, denies need for home health at this time. Patient states she has no further needs or concerns at this time. CM to follow for discharge planning needs that may arise. PCP: Isaias Specialists: zhen Garces Pharmacy: [facility] Insurance: [facility], [facility] Prescription Benefit: yes Living Will/HPOA: yes, Cisco Barrios LNOK: Living Arrangements: Patient lives with in a single story home with 2 steps and grab bars to enter the home. Patient states she is independent at home. Transportation: self/ DME/HHC: Patient states she has shower chair, raised toilet, cane, grab bars at home. Patient denies previous HHC or SNF. Disposition Plan: Patient to discharge home with family support and follow-up plans in place. Bharati HAYWARD, RN, CM
--- NOTE | 2020-12-30 11:00 | EX.PCM.DISCH ---
Discharge Instructions Outpatient Procedure Reason For Visit: HERNIA WITH BOWEL RECECTION Diet Discharge Diet: Light diet - advance as tolerated Activity Discharge Activity: May not drive while taking narcotic pain medications. May shower in (days): 1 Lifting Restrictions: no lifting >20 lbs x 2 wks, no strenuous exercise for 4 wks Dressing / Incision Call your doctor if your incision/area has: Continuous Slow Oozing, Sudden Increased Bleeding, Increased Pain/ Swelling, Increased Redness, Foul Smelling Discharge and Swelling at the incision site Call your doctor if you observe: Fever of 101 or Higher Remove Dressing in: 2 days Cleanse incision/area with: Soap & Water Additional Dressing/Incision Instructions:: Steri-Strips will fall off in 7 to 10 days, if they do not fall off okay to remove after 10 days. Follow Up Care Please Follow Up With: Radha Alfaro MD When: Call the office for a follow-up appointment 2 weeks; after 5 PM and on the weekends call [phone] with any concerns. Test Results: Test results from this visit will be discussed in further detail at your follow-up appointment, if applicable. Discharge Plan Admission Admit Date/Time: 12/30/20 07:31 Primary Reason for Your Visit: Incarcerated incisional hernia Attending Provider: Radha Alfaro Primary Care Provider: King Esparza Chi Discharge Orders/Prescriptions Prescriptions: New hydrocodone-acetaminophen 5-325 mg Tablet 1 - 2 tab PO Q4H PRN PRN (Reason: pain) 2 Days Qty: 10 RF: 0 Continued atorvastatin 10 MG tablet 10 mg PO QHS RF: 0 metoprolol tartrate 50 MG tablet 50 mg PO BID RF: 0 metformin 500 MG tablet 500 mg PO DAILY RF: 0 aspirin 81 MG tablet,delayed release (DR/EC) 81 mg PO DAILY@0800 RF: 0 cholecalciferol (vitamin D3) 50 MCG capsule 1,000 unit PO DAILY RF: 0 Other Ambulatory Orders: CBC W/Diff, Automated (Routine) Timeframe: 20210101 Facility: [facility] - Location: Laboratory Ordered By: Dr. Radha Alfaro Referrals: King Esparza Chi, MD [Primary Care Provider] - Disposition Disposition (needs filled in before D/C Order can be placed): Home, self care
[2020-12-30] MEDS: Acetaminophen 325 MG Tablet 650 MG PO (11:20)
[2020-12-30] MEDS: 0.9% Saline Lock 10 ML Syringe IV (11:20)
[2020-12-30 12:00] LABS: Bedside Glucose 176 mg/dL (70-110)
--- NOTE | 2020-12-30 13:11 | CHAPLAIN ---
Type of Pastoral Visit _x__ Initial Visit ___ Follow-up Visit ___ On-call Visit ___ General Patient Visit ___ Spiritual Assessment ___ Family Conference ___ Bereavement ___ Rapid Response ___ Code Blue ___ Other (describe below) Pastoral Care Referral From _x__ Patient ___ Family ___ Nurse ___ Physician ___ Industrial Roofer ___ Cook Sauce ___ Other (describe below) Sacrament/Intervention _x__ Active listening ___ Anointing ___ Catholic ___ Bereavement ___ Communion _x__ Rosalia exploration ___ ___ Life review _x__ Prayer ___ Reconciliation ___ Sacrament of Sick _x__ Supportive presence ___ Wedding ___ Other (describe below) Pastoral Comments patient is jovial and welcoming; spouse is with patient; pt requests prayer;
[2020-12-30 17:05] LABS: Bedside Glucose 129 mg/dL (70-110)
[2020-12-30] MEDS: Ibuprofen 600 MG Tablet PO (18:09)
== END 2020-12-30 18:18 | disposition home or self-care (01) | DRG 355 ==
LOC: ED 20:11 → SDC 21:04 → MS3 12-30 07:04 → SDC 12-30 11:59
PROVIDERS: Admitting Provider Surgery; Emergency Provider Emergency Medicine; PCP Family Medicine Geriatric Medicine; Referring Provider Surgery; Visit Provider Surgery
DX: K43.0 Incisional hernia with obstruction, without gangrene (principal); I10 Essential (primary) hypertension; E11.9 Type 2 diabetes mellitus without complications; E78.00 Pure hypercholesterolemia, unspecified; Z90.710 Acquired absence of both cervix and uterus; Z90.49 Acquired absence of other specified parts of digestive tract; Z79.82 Long term (current) use of aspirin; Z79.84 Long term (current) use of oral hypoglycemic drugs; Z79.899 Other long term (current) drug therapy
CPT/HCPCS: 36415; 74177; 80048; 82962; 85025; 88302; 93005; 99251; 99284; J7030; J7120; Q9967; A4216; G0463; J0744; J2405

== ENCOUNTER → 2021-02-11 10:24 | Outpatient (CLI) | payer MEDICARE, OTHER, SELFPAY ==
[2020-12-30 00:54] VITALS: BMI 37.1
[2021-02-11 11:59] LABS: Absolute Lymphocyte Count 3.07 X10^3/uL (0.83-4.51); Absolute Neutrophil Count 5.6 X10^3/uL (2.0-7.7); Basophil# 0.06 X10^3/uL; Basophil% 0.6 % (0-1); Eosinophil# 0.16 X10^3/uL; Eosinophils% 1.6 % (0-5); Hemoglobin 14.9 g/dL (12.0-15.0); Lymphocyte # 3.07 X10^3/ul (0.83-4.51); Lymphocyte % 31.6 % (19-41); Mean Corp Hgb Conc 33.1 g/dL (32-36); Mean Corpuscular Hgb 28.9 pg (27.0-32.0); Mean Corpuscular Volume 87.2 fL (81-99); Mean Platelet Vol. 9.7 fl (6.2-12.0); Monocyte# 0.81 X10^3/uL; Monocyte% 8.3 % (0-10); NRBC Flagged by Analyzer 0 % (0-5); Neutrophil # 5.58 X10^3/uL (2.7-7.7); Neutrophil % 57.4 % (47-70); Platelet Count 400 K/mm3 (150-450); RBC Distribution Width CV 13.4 % (11.6-14.6); RBC Distribution Width SD 42.4 fl (35.1-43.9); Red Blood Count 5.16 M/mm3 (4.2-5.4); White Blood Count 9.7 K/mm3 (4.4-11.0)
[2021-02-11 12:26] LABS: ALB/GLOB Ratio 1.1 RATIO (0.9-2.4); AST(SGOT) 25 U/L (15-37); Alanine Aminotransfer ALT/SGPT 35 U/L (13-56); Albumin, Serum 3.8 g/dL (3.2-5.0); Alkaline Phosphatase 86 U/L (45-117); Anion Gap 9 (5-15); BUN 8 mg/dL (7-18); BUN/Creat Ratio 10.7 RATIO (10-20); Calcium,Total 8.9 mg/dL (8.5-10.1); Chloride 105 mmol/L (98-107); Creatinine, Serum 0.75 mg/dL (0.55-1.02); EST Glomerular Filtration Rate 82 mL/min (>60); Est Glom Filt Rate - Afr Amer 99 mL/min (>60); Globulin 3.6 g/dL (2.2-4.2); Glucose 130 mg/dL (74-106); Potassium 3.9 mmol/L (3.5-5.1); Protein, Total 7.4 g/dL (6.4-8.2); Sodium Level 138 mmol/L (136-145); Thyroid Stim Hormone (TSH) 2.31 uIU/mL (0.358-3.74)
[2021-02-11 12:31] LABS: Vitamin D,25 Hydroxy 38.2 ng/mL
== END ==
PROVIDERS: PCP Family Medicine Geriatric Medicine; Visit Provider Family Medicine Geriatric Medicine
DX: E11.65 Type 2 diabetes mellitus with hyperglycemia (principal); E55.9 Vitamin D deficiency, unspecified; I10 Essential (primary) hypertension
CPT/HCPCS: 36415; 80053; 82306; 84443; 85025

== ENCOUNTER → 2021-08-12 10:02 | Outpatient (CLI) | payer MEDICARE, OTHER, SELFPAY ==
[2021-08-12 12:47] LABS: Absolute Lymphocyte Count 2.81 X10^3/uL (0.83-4.51); Absolute Neutrophil Count 6.4 X10^3/uL (2.0-7.7); Basophil# 0.04 X10^3/uL; Basophil% 0.4 % (0-1); Eosinophil# 0.14 X10^3/uL; Eosinophils% 1.4 % (0-5); Hematocrit 44.3 % (37-47); Lymphocyte # 2.81 X10^3/ul (0.83-4.51); Lymphocyte % 27.8 % (19-41); Mean Corp Hgb Conc 33.9 g/dL (32-36); Mean Corpuscular Hgb 29.2 pg (27.0-32.0); Mean Corpuscular Volume 86.4 fL (81-99); Monocyte# 0.71 X10^3/uL; NRBC Flagged by Analyzer 0 % (0-5); Neutrophil # 6.36 X10^3/uL (2.7-7.7); Neutrophil % 62.9 % (47-70); Platelet Count 370 K/mm3 (150-450); RBC Distribution Width CV 13.5 % (11.6-14.6); RBC Distribution Width SD 42.7 fl (35.1-43.9); Red Blood Count 5.13 M/mm3 (4.2-5.4); White Blood Count 10.1 K/mm3 (4.4-11.0)
[2021-08-12 13:06] LABS: AST(SGOT) 21 U/L (15-37); Alanine Aminotransfer ALT/SGPT 31 U/L (13-56); Albumin, Serum 3.8 g/dL (3.2-5.0); Alkaline Phosphatase 87 U/L (45-117); Anion Gap 7 (5-15); BUN 12 mg/dL (7-18); BUN/Creat Ratio 15.6 RATIO (10-20); Calcium,Total 9.7 mg/dL (8.5-10.1); Chloride 104 mmol/L (98-107); Creatinine, Serum 0.77 mg/dL (0.55-1.02); EST Glomerular Filtration Rate 79 mL/min (>60); Est Glom Filt Rate - Afr Amer 95 mL/min (>60); Globulin 3.9 g/dL (2.2-4.2); Glucose 145 mg/dL (74-106); Protein, Total 7.7 g/dL (6.4-8.2); Sodium Level 137 mmol/L (136-145); Thyroid Stim Hormone (TSH) 2.71 uIU/mL (0.358-3.74)
[2021-08-12 13:20] LABS: Vitamin D,25 Hydroxy 32.9 ng/mL
== END ==
PROVIDERS: PCP Family Medicine Geriatric Medicine; Visit Provider Family Medicine Geriatric Medicine
DX: E11.65 Type 2 diabetes mellitus with hyperglycemia (principal); E55.9 Vitamin D deficiency, unspecified; I10 Essential (primary) hypertension
CPT/HCPCS: 36415; 80053; 82306; 84443; 85025

== ENCOUNTER → 2022-02-17 | Outpatient (CLI) | payer MEDICARE, OTHER, SELFPAY ==
[2022-02-17 12:01] LABS: Absolute Lymphocyte Count 2.38 X10^3/uL (0.83-4.51); Absolute Neutrophil Count 5.5 X10^3/uL (2.0-7.7); Basophil# 0.05 X10^3/uL; Basophil% 0.5 % (0-1); Eosinophils% 1.1 % (0-5); Hematocrit 41.2 % (37-47); Hemoglobin 13.9 g/dL (12.0-15.0); Lymphocyte # 2.38 X10^3/ul (0.83-4.51); Lymphocyte % 26.1 % (19-41); Mean Corp Hgb Conc 33.7 g/dL (32-36); Mean Platelet Vol. 9.5 fl (6.2-12.0); Monocyte# 0.98 X10^3/uL; Monocyte% 10.7 % (0-10); NRBC Flagged by Analyzer 0 % (0-5); Neutrophil # 5.51 X10^3/uL (2.7-7.7); Neutrophil % 60.5 % (47-70); Platelet Count 342 K/mm3 (150-450); RBC Distribution Width CV 13.5 % (11.6-14.6); RBC Distribution Width SD 42.6 fl (35.1-43.9); Red Blood Count 4.79 M/mm3 (4.2-5.4); White Blood Count 9.1 K/mm3 (4.4-11.0)
[2022-02-17 12:28] LABS: ALB/GLOB Ratio 1.1 RATIO (0.9-2.4); AST(SGOT) 25 U/L (15-37); Alanine Aminotransfer ALT/SGPT 32 U/L (13-56); Albumin, Serum 3.8 g/dL (3.2-5.0); Alkaline Phosphatase 72 U/L (45-117); Anion Gap 8 (5-15); BUN 14 mg/dL (7-18); BUN/Creat Ratio 22.7 RATIO (10-20); Calcium,Total 8.7 mg/dL (8.5-10.1); Chloride 104 mmol/L (98-107); Creatinine, Serum 0.62 mg/dL (0.55-1.02); EST Glomerular Filtration Rate 101 mL/min (>60); Est Glom Filt Rate - Afr Amer 122 mL/min (>60); Globulin 3.5 g/dL (2.2-4.2); Glucose 128 mg/dL (74-106); Potassium 3.7 mmol/L (3.5-5.1); Protein, Total 7.3 g/dL (6.4-8.2); Sodium Level 136 mmol/L (136-145); Thyroid Stim Hormone (TSH) 2.37 uIU/mL (0.358-3.74)
== END | disposition home or self-care (01) ==
LOC: POLAB3 08:43
PROVIDERS: PCP Family Medicine Geriatric Medicine; Visit Provider Family Medicine Geriatric Medicine
DX: E55.9 Vitamin D deficiency, unspecified (principal); R53.83 Other fatigue
CPT/HCPCS: 36415; 80053; 82306; 84443; 85025

== ENCOUNTER → 2022-03-25 | Outpatient (CLI) | payer MEDICARE, OTHER, SELFPAY ==
--- NOTE | 2022-03-25 10:11 | BI_ITS ---
MAMMOGRAPHY - BILATERAL SCREENING REASON FOR EXAM: Female, 72 years old. Routine annual screening examination. PERTINENT HISTORY: Mother with breast cancer. TECHNIQUE: Digital bilateral breast tyron (3D mammographic acquisition) in the CC and MLO projections. 2-D mediolateral oblique (MLO) and craniocaudad (CC) views of both breasts were obtained. CAD: Full Field Digital Mammography with Computer Added Detection was performed. COMPARISON: Comparison is made with prior study 02/13/2020 and 01/24/2014. FINDINGS: Breast Composition: There are scattered areas of fibroglandular density. There are no dominant masses or suspicious calcifications. Stable scattered bilateral secretory calcification. Stable bilateral benign-appearing axillary lymph nodes. No other significant abnormalities are identified. There has been no significant change since the prior study. BI/SCRN MAMM (CAD)W/TYRNO BILAT IMPRESSION: Stable bilateral screening mammogram. Yearly follow-up mammogram recommended. (A) ASSESSMENT CATEGORY: BIRADS Category 2: Benign. A letter regarding these results will be sent to the patient by the facility within 30 days. Approximately 10% of breast cancers are not detected by mammography. A normal mammogram should not delay biopsy of a clinically suspicious abnormality. [id number] Electronically Signed: Johnathan Watson MD at 12:14 EDT ,
== END | disposition home or self-care (01) ==
LOC: OPBI 10:10
PROVIDERS: PCP Family Medicine Geriatric Medicine; Visit Provider Family Medicine Geriatric Medicine
DX: Z12.31 Encounter for screening mammogram for malignant neoplasm of breast (principal); Z80.3 Family history of malignant neoplasm of breast
CPT/HCPCS: 77063; 77067

== ENCOUNTER → 2022-08-18 | Outpatient (CLI) | payer MEDICARE, OTHER, SELFPAY ==
[2022-08-18 13:13] LABS: Absolute Lymphocyte Count 3.24 X10^3/uL (0.83-4.51); Absolute Neutrophil Count 5.7 X10^3/uL (2.0-7.7); Basophil# 0.04 X10^3/uL; Basophil% 0.4 % (0-1); Eosinophil# 0.18 X10^3/uL; Eosinophils% 1.8 % (0-5); Hematocrit 46.3 % (37-47); Lymphocyte # 3.24 X10^3/ul (0.83-4.51); Lymphocyte % 32.7 % (19-41); Mean Corp Hgb Conc 32.4 g/dL (32-36); Mean Corpuscular Hgb 28.6 pg (27.0-32.0); Mean Corpuscular Volume 88.2 fL (81-99); Mean Platelet Vol. 9.4 fl (6.2-12.0); Monocyte# 0.74 X10^3/uL; Monocyte% 7.5 % (0-10); NRBC Flagged by Analyzer 0 % (0-5); Neutrophil # 5.66 X10^3/uL (2.7-7.7); Neutrophil % 57.2 % (47-70); Platelet Count 385 K/mm3 (150-450); RBC Distribution Width CV 13.3 % (11.6-14.6); RBC Distribution Width SD 43.3 fl (35.1-43.9); Red Blood Count 5.25 M/mm3 (4.2-5.4); White Blood Count 9.9 K/mm3 (4.4-11.0)
[2022-08-18 13:27] LABS: Vitamin D,25 Hydroxy 40.9 ng/mL
[2022-08-18 13:44] LABS: ALB/GLOB Ratio 1.3 RATIO (0.9-2.4); AST(SGOT) 22 U/L (15-37); Alanine Aminotransfer ALT/SGPT 33 U/L (13-56); Albumin, Serum 3.9 g/dL (3.2-5.0); Alkaline Phosphatase 91 U/L (45-117); BUN 9 mg/dL (7-18); BUN/Creat Ratio 13.7 RATIO (10-20); Calcium,Total 9.7 mg/dL (8.5-10.1); Creatinine, Serum 0.66 mg/dL (0.55-1.02); EST Glomerular Filtration Rate 94 mL/min (>60); Est Glom Filt Rate - Afr Amer 114 mL/min (>60); Globulin 3.1 g/dL (2.2-4.2); Glucose 157 mg/dL (74-106)
[2022-08-18 13:45] LABS: Anion Gap 8 (5-15); Chloride 106 mmol/L (98-107); Sodium Level 140 mmol/L (136-145); Thyroid Stim Hormone (TSH) 3.33 uIU/mL (0.358-3.74)
== END | disposition home or self-care (01) ==
LOC: POLAB3 09:47
PROVIDERS: PCP Family Medicine Geriatric Medicine; Visit Provider Family Medicine Geriatric Medicine
DX: E55.9 Vitamin D deficiency, unspecified (principal); E11.65 Type 2 diabetes mellitus with hyperglycemia; R53.83 Other fatigue
CPT/HCPCS: 36415; 80053; 82306; 84443; 85025

== ENCOUNTER → 2023-02-20 | Outpatient (CLI) | payer OTHER, MEDICARE, SELFPAY ==
[2023-02-20 10:57] LABS: Absolute Lymphocyte Count 2.33 X10^3/uL (0.83-4.51); Absolute Neutrophil Count 5.2 X10^3/uL (2.0-7.7); Basophil# 0.04 X10^3/uL; Basophil% 0.5 % (0-1); Eosinophil# 0.13 X10^3/uL; Eosinophils% 1.5 % (0-5); Hematocrit 44.1 % (37-47); Hemoglobin 14.8 g/dL (12.0-15.0); Lymphocyte # 2.33 X10^3/ul (0.83-4.51); Lymphocyte % 27.5 % (19-41); Mean Corp Hgb Conc 33.6 g/dL (32-36); Mean Corpuscular Hgb 29.2 pg (27.0-32.0); Mean Platelet Vol. 8.8 fl (6.2-12.0); Monocyte# 0.76 X10^3/uL; NRBC Flagged by Analyzer 0 % (0-5); Neutrophil # 5.18 X10^3/uL (2.7-7.7); Neutrophil % 61.3 % (47-70); Platelet Count 338 K/mm3 (150-450); RBC Distribution Width CV 13.7 % (11.6-14.6); RBC Distribution Width SD 42.9 fl (35.1-43.9); Red Blood Count 5.07 M/mm3 (4.2-5.4); White Blood Count 8.5 K/mm3 (4.4-11.0)
[2023-02-20 11:27] LABS: Vitamin D,25 Hydroxy 48.9 ng/mL
[2023-02-20 11:34] LABS: ALB/GLOB Ratio 1.1 RATIO (0.9-2.4); AST(SGOT) 20 U/L (15-37); Alanine Aminotransfer ALT/SGPT 25 U/L (13-56); Albumin, Serum 3.9 g/dL (3.2-5.0); Alkaline Phosphatase 78 U/L (45-117); Anion Gap 6 (5-15); BUN 13 mg/dL (7-18); Calcium,Total 9.4 mg/dL (8.5-10.1); Chloride 107 mmol/L (98-107); Creatinine, Serum 0.68 mg/dL (0.55-1.02); EST Glomerular Filtration Rate 89 mL/min (>60); Est Glom Filt Rate - Afr Amer 108 mL/min (>60); Globulin 3.4 g/dL (2.2-4.2); Glucose 121 mg/dL (74-106); Potassium 4.2 mmol/L (3.5-5.1); Protein, Total 7.3 g/dL (6.4-8.2); Sodium Level 139 mmol/L (136-145); Thyroid Stim Hormone (TSH) 2.01 uIU/mL (0.358-3.74)
== END | disposition home or self-care (01) ==
LOC: LAB 10:09
PROVIDERS: PCP Family Medicine Geriatric Medicine; Referring Provider Family Medicine Geriatric Medicine; Visit Provider Family Medicine Geriatric Medicine
DX: I10 Essential (primary) hypertension (principal); E11.65 Type 2 diabetes mellitus with hyperglycemia; E55.9 Vitamin D deficiency, unspecified
CPT/HCPCS: 36415; 80053; 82306; 84443; 85025

== ENCOUNTER → 2023-08-15 | Outpatient (CLI) | payer OTHER, MEDICARE, SELFPAY ==
[2023-08-15 11:33] LABS: Absolute Lymphocyte Count 2.72 X10^3/uL (0.83-4.51); Absolute Neutrophil Count 5.7 X10^3/uL (2.0-7.7); Basophil# 0.07 X10^3/uL; Basophil% 0.7 % (0-1); Eosinophil# 0.13 X10^3/uL; Eosinophils% 1.4 % (0-5); Hematocrit 43.1 % (37-47); Hemoglobin 14.1 g/dL (12.0-15.0); Lymphocyte # 2.72 X10^3/ul (0.83-4.51); Lymphocyte % 28.8 % (19-41); Mean Corp Hgb Conc 32.7 g/dL (32-36); Mean Corpuscular Hgb 28.4 pg (27.0-32.0); Mean Corpuscular Volume 86.7 fL (81-99); Mean Platelet Vol. 9.3 fl (6.2-12.0); Monocyte# 0.84 X10^3/uL; Monocyte% 8.9 % (0-10); NRBC Flagged by Analyzer 0 % (0-5); Neutrophil # 5.66 X10^3/uL (2.7-7.7); Neutrophil % 59.8 % (47-70); Platelet Count 358 K/mm3 (150-450); RBC Distribution Width CV 13.2 % (11.6-14.6); RBC Distribution Width SD 41.8 fl (35.1-43.9); Red Blood Count 4.97 M/mm3 (4.2-5.4); White Blood Count 9.5 K/mm3 (4.4-11.0)
[2023-08-15 11:46] LABS: Vitamin D,25 Hydroxy 38.1 ng/mL
[2023-08-15 11:53] LABS: ALB/GLOB Ratio 1.1 RATIO (0.9-2.4); AST(SGOT) 22 U/L (15-37); Alanine Aminotransfer ALT/SGPT 29 U/L (13-56); Albumin, Serum 3.8 g/dL (3.2-5.0); Alkaline Phosphatase 89 U/L (45-117); Anion Gap 8 (5-15); BUN 11 mg/dL (7-18); BUN/Creat Ratio 16.2 RATIO (10-20); Calcium,Total 8.8 mg/dL (8.5-10.1); Chloride 106 mmol/L (98-107); Creatinine, Serum 0.68 mg/dL (0.55-1.02); EST Glomerular Filtration Rate 90 mL/min (>60); Est Glom Filt Rate - Afr Amer 109 mL/min (>60); Globulin 3.5 g/dL (2.2-4.2); Glucose 131 mg/dL (74-106); Potassium 3.9 mmol/L (3.5-5.1); Protein, Total 7.3 g/dL (6.4-8.2); Sodium Level 139 mmol/L (136-145)
== END | disposition home or self-care (01) ==
LOC: POLAB3 10:50
PROVIDERS: PCP Family Medicine Geriatric Medicine; Visit Provider Family Medicine Geriatric Medicine
DX: E11.65 Type 2 diabetes mellitus with hyperglycemia (principal); I10 Essential (primary) hypertension; E55.9 Vitamin D deficiency, unspecified
CPT/HCPCS: 36415; 80053; 82306; 84443; 85025

== ENCOUNTER → 2024-03-07 | Outpatient (CLI) | payer OTHER, MEDICARE, SELFPAY ==
[2024-03-07 10:17] LABS: Absolute Lymphocyte Count 3.35 X10^3/uL (0.83-4.51); Absolute Neutrophil Count 6.2 X10^3/uL (2.0-7.7); Basophil# 0.06 X10^3/uL; Basophil% 0.6 % (0-1); Eosinophil# 0.15 X10^3/uL; Eosinophils% 1.4 % (0-5); Hematocrit 43.7 % (37-47); Hemoglobin 14.6 g/dL (12.0-15.0); Lymphocyte # 3.35 X10^3/ul (0.83-4.51); Lymphocyte % 31.1 % (19-41); Mean Corp Hgb Conc 33.4 g/dL (32-36); Mean Corpuscular Hgb 28.3 pg (27.0-32.0); Mean Corpuscular Volume 84.7 fL (81-99); Mean Platelet Vol. 9.6 fl (6.2-12.0); Monocyte% 9.3 % (0-10); NRBC Flagged by Analyzer 0 % (0-5); Neutrophil # 6.18 X10^3/uL (2.7-7.7); Neutrophil % 57.2 % (47-70); Platelet Count 371 K/mm3 (150-450); RBC Distribution Width CV 13.2 % (11.6-14.6); RBC Distribution Width SD 41.1 fl (35.1-43.9); Red Blood Count 5.16 M/mm3 (4.2-5.4); White Blood Count 10.8 K/mm3 (4.4-11.0)
[2024-03-07 10:37] LABS: Vitamin D,25 Hydroxy 31.4 ng/mL
[2024-03-07 10:50] LABS: AST(SGOT) 23 U/L (15-37); Alanine Aminotransfer ALT/SGPT 26 U/L (13-56); Albumin, Serum 3.7 g/dL (3.2-5.0); Alkaline Phosphatase 81 U/L (45-117); Anion Gap 9 (5-15); BUN 13 mg/dL (7-18); BUN/Creat Ratio 19.8 RATIO (10-20); Chloride 106 mmol/L (98-107); Creatinine, Serum 0.66 mg/dL (0.55-1.02); EST Glomerular Filtration Rate 94 mL/min (>60); Est Glom Filt Rate - Afr Amer 113 mL/min (>60); Globulin 3.6 g/dL (2.2-4.2); Glucose 140 mg/dL (74-106); Potassium 3.9 mmol/L (3.5-5.1); Protein, Total 7.3 g/dL (6.4-8.2); Sodium Level 138 mmol/L (136-145); Thyroid Stim Hormone (TSH) 2.76 uIU/mL (0.358-3.74)
== END | disposition home or self-care (01) ==
LOC: POLAB3 09:12
PROVIDERS: PCP Family Medicine Geriatric Medicine; Visit Provider Family Medicine Geriatric Medicine
DX: E11.65 Type 2 diabetes mellitus with hyperglycemia (principal); E55.9 Vitamin D deficiency, unspecified; I10 Essential (primary) hypertension
CPT/HCPCS: 36415; 80053; 82306; 84443; 85025

== ENCOUNTER → 2024-03-28 | Outpatient (CLI) | payer OTHER, MEDICARE, SELFPAY ==
--- NOTE | 2024-03-28 10:01 | BI_ITS ---
MAMMOGRAPHY - BILATERAL SCREENING REASON FOR EXAM: Female, 74 years old. Routine annual screening examination. PERTINENT HISTORY: Mother with breast cancer. TECHNIQUE: Digital bilateral breast tyron (3D mammographic acquisition) in the CC and MLO projections. 2-D mediolateral oblique (MLO) and craniocaudad (CC) views of both breasts were obtained. CAD: Full Field Digital Mammography with Computer Added Detection was performed. COMPARISON: Comparison is made with prior study dated March 25, 2022 and February 13, 2020. FINDINGS: Breast Composition: There are scattered areas of fibroglandular density. There are no dominant masses or suspicious calcifications. Stable scattered bilateral secretory calcifications. Stable bilateral fat-containing axillary lymph nodes. No other significant abnormalities are identified. There has been no significant change since the prior study. BI/SCRN MAMM (CAD)W/TYRON BILAT IMPRESSION: Stable bilateral screening mammogram. Yearly follow-up mammogram recommended. (A) ASSESSMENT CATEGORY: BIRADS Category 2: Benign. A letter regarding these results will be sent to the patient by the facility within 30 days. Approximately 10% of breast cancers are not detected by mammography. A normal mammogram should not delay biopsy of a clinically suspicious abnormality. [id number] Electronically Signed: Johnathan Watson MD at 11:08 EDT ,
--- NOTE | 2024-03-28 10:04 | BD_ITS ---
STUDY: DUAL ENERGY X-RAY ABSORPTIOMETRY / DXA REASON FOR EXAM: Female, 74 years old. Z78.0 TECHNIQUE: Bone Mineral Density (BMD) measurements of lumbar spine and right forearm were obtained. COMPARISON: None. FINDINGS: Lumbar Spine (L1-L4): g/cm2 (1.444) / T-score (3.7) / Z-score (6.0) Findings are suggestive of normal bone density with a low fracture risk. Right Forearm: g/cm2 (0.620) / T-score (0.8) / Z-score (3.1) BD/Dexa Bone Density Study IMPRESSION: The patient is considered normal as outlined below according to World Benny Organization (WHO) criteria with a low fracture risk. Reference Information: The T-score is the number of standard deviations above or below the standard which is normal for young adults at their peak bone mineral density. The World Health Organization (WHO) interprets the T-scores as follows: Above -1 Normal bone density Between -1 and -2.5 Osteopenia Equal to / or below -2.5 Osteoporosis As a practical clinical guideline, osteopenia may be graded as follows: Mild -1 through -1.5 Moderate -1.6 through -2.0 Severe -2.1 through -2.4 The Z-score is the number of standard deviations above or below age-matched controls. A Z-score of less than -1.5 would be considered abnormal. References: 1. NIH Osteoporosis and Related Bone Diseases www osteo.org 2. International Society for Clinical Densitometry www iscd.org 3. National Osteoporosis Foundation www nof.org Electronically Signed: Johnathan Watson MD at 15:11 EDT ,
== END | disposition home or self-care (01) ==
PROVIDERS: PCP Family Medicine Geriatric Medicine; Referring Provider Family Medicine Geriatric Medicine; Visit Provider Family Medicine Geriatric Medicine
DX: Z12.31 Encounter for screening mammogram for malignant neoplasm of breast (principal); Z80.3 Family history of malignant neoplasm of breast; Z78.0 Asymptomatic menopausal state
CPT/HCPCS: 77063; 77067; 77080

== ENCOUNTER → 2024-09-05 | Outpatient (CLI) | payer MEDICARE, SELFPAY ==
[2024-09-05 10:38] LABS: Absolute Lymphocyte Count 2.28 X10^3/uL (0.83-4.51); Absolute Neutrophil Count 5.5 X10^3/uL (2.0-7.7); Basophil# 0.04 X10^3/uL; Basophil% 0.5 % (0-1); Eosinophil# 0.13 X10^3/uL; Eosinophils% 1.5 % (0-5); Hemoglobin 14.2 g/dL (12.0-15.0); Lymphocyte # 2.28 X10^3/ul (0.83-4.51); Lymphocyte % 26.3 % (19-41); Mean Corpuscular Hgb 28.5 pg (27.0-32.0); Mean Corpuscular Volume 86.3 fL (81-99); Monocyte# 0.67 X10^3/uL; Monocyte% 7.7 % (0-10); NRBC Flagged by Analyzer 0 % (0-5); Neutrophil # 5.51 X10^3/uL (2.7-7.7); Neutrophil % 63.7 % (47-70); Platelet Count 352 K/mm3 (150-450); RBC Distribution Width CV 13.2 % (11.6-14.6); RBC Distribution Width SD 41.2 fl (35.1-43.9); Red Blood Count 4.98 M/mm3 (4.2-5.4); White Blood Count 8.7 K/mm3 (4.4-11.0)
[2024-09-05 11:06] LABS: Vitamin D,25 Hydroxy 37.7 ng/mL
[2024-09-05 11:17] LABS: AST(SGOT) 20 U/L (15-37); Alanine Aminotransfer ALT/SGPT 29 U/L (13-56); Albumin, Serum 3.7 g/dL (3.2-5.0); Alkaline Phosphatase 85 U/L (45-117); Anion Gap 5 (5-15); BUN 7 mg/dL (7-18); BUN/Creat Ratio 10.8 RATIO (10-20); Chloride 105 mmol/L (98-107); Cholesterol 144 mg/dL (200); Creatinine, Serum 0.65 mg/dL (0.55-1.02); EST Glomerular Filtration Rate 95 mL/min (>60); Est Glom Filt Rate - Afr Amer 115 mL/min (>60); Globulin 3.8 g/dL (2.2-4.2); Glucose 147 mg/dL (74-106); High Density Lipoprotein 40 mg/dL; Potassium 4.2 mmol/L (3.5-5.1); Protein, Total 7.5 g/dL (6.4-8.2); Sodium Level 138 mmol/L (136-145); Triglycerides 312 mg/dL; Very Low Density Lipoprotein 62 mg/dL (5-40)
[2024-09-05 12:02] LABS: Hemoglobin A1c 6.7 % (3.8-5.6)
== END | disposition home or self-care (01) ==
LOC: LAB 10:04
PROVIDERS: PCP Family Medicine Geriatric Medicine; Referring Provider Family Medicine Geriatric Medicine; Visit Provider Family Medicine Geriatric Medicine
DX: I10 Essential (primary) hypertension (principal); E11.65 Type 2 diabetes mellitus with hyperglycemia; E78.5 Hyperlipidemia, unspecified; E55.9 Vitamin D deficiency, unspecified
CPT/HCPCS: 36415; 80053; 80061; 82306; 83036; 84443; 85025

== ENCOUNTER → 2025-03-10 | Outpatient (CLI) | payer MEDICARE, SELFPAY ==
[2025-03-10 10:22] LABS: AST(SGOT) 26 U/L (<=31); Alanine Aminotransfer ALT/SGPT 24 U/L (<=34); Albumin, Serum 4.4 g/dL (3.4-4.8); Alkaline Phosphatase 82 U/L (35-104); Anion Gap 13 (5-15); BUN 10 mg/dL (4-19); BUN/Creat Ratio 16.6 RATIO (10-20); Calcium,Total 9.3 mg/dL (7.6-11.0); Carbon Dioxide 21.6 mmol/L (21.0-32.0); Chloride 103 mmol/L (98-108); Cholesterol 161 mg/dL (<=200); Globulin 2.7 g/dL (2.2-4.2); Glucose 165 mg/dL (70-99); Low Density Lipoprotein Calc. 36 mg/dL; Potassium 4.2 mmol/L (3.3-5.1); Triglycerides 455 mg/dL; Very Low Density Lipoprotein 91 mg/dL (5-40); cholesterol:hdl ratio screen 4.69
[2025-03-10 10:25] LABS: Hematocrit 42.1 % (37-47); Hemoglobin 14.4 g/dL (12.0-15.0); Mean Corp Hgb Conc 34.2 g/dL (32-36); Mean Corpuscular Volume 85.4 fL (81-99); Mean Platelet Vol. 9.7 fl (6.2-12.0); Platelet Count 336 K/mm3 (150-450); RBC Distribution Width CV 13.2 % (11.6-14.6); RBC Distribution Width SD 41.1 fl (35.1-43.9); Red Blood Count 4.93 M/mm3 (4.2-5.4); White Blood Count 8.3 K/mm3 (4.4-11.0)
[2025-03-10 10:26] LABS: Immature Granulocytes Count 0.020 X10^3/uL (0.0-0.0)
--- NOTE | 2025-03-10 10:30 | RAD_ITS ---
PROCEDURE: HIP, UNI W/ PELVIS 2-3 VIEWS 03/10/2025 REASON FOR EXAM: RIGHT SIDE SCIATICA TECHNIQUE: HIP, UNI W/ PELVIS 2-3 VIEWS COMPARISON: None FINDINGS: Bones: There are no fractures or dislocations. Joints: The right prosthetic hip device appears to be in satisfactory position without evidence of fracture or loosening. The visualized portion of the left prosthetic device appears to be in satisfactory position without evidence of fracture or loosening. Please note that the distal portion is not included on this study. Mild arthritic changes are seen involving the SI joints and pubic symphysis. Soft tissues: Unremarkable. Other: Mild degenerative changes of the lower lumbar spine are noted. The visualized sacrum is unremarkable. RAD/HIP, UNI W/ Pelvis 2-3 Views IMPRESSION: Both prosthetic hip devices appear to be in satisfactory position without evide nce of fracture or loosening as described above. Degenerative changes lower lumbar spine. Degenerative changes bilateral SI joints and pubic symphysis. No acute fractures or dislocations. Reading Location: [id number]
--- NOTE | 2025-03-10 10:30 | RAD_ITS ---
PROCEDURE: L/S SPINE MIN 4 VIEWS 03/10/2025 REASON FOR EXAM: RIGHT SIDE SCIATICA TECHNIQUE: L/S SPINE MIN 4 VIEWS COMPARISON: None FINDINGS: Four views of the lumbosacral spine demonstrate 5 lumbar-type vertebral bodies below the last set of paired ribs. There is approximately 2 mm of retrolisthesis of L4 in relationship to L5 and 2 mm of retrolisthesis of L3 in relationship to L4. Degenerative changes of the lumbar spine are noted. There is juxta articular sclerosis involving the inferior endplate of the L2 vertebral body and superior endplate of the L3 vertebral body. Degenerative disc disease is seen involving the L2-L3, L3-L4, L4-L5 and L5-S1 levels. This is most pronounced at the L2-L3 level. Mild arteriosclerotic vascular disease of the aorta is noted. Moderate amount of stool and gas is present in the visualized portions of the colon RAD/L/S Spine Min 4 Views IMPRESSION: MRI of the lumbar spine may be of value for further evaluation of the juxta-art icular sclerosis involving the inferior endplate of the L2 vertebral body and superior endplate of the L3 vertebral body. This will also further evaluate the disc spaces and nerve roots if clinically warranted. Reading Location: [id number]
[2025-03-10 11:12] LABS: Creatinine, Urine (random) 171.00 mg/dL (28.00-217.00)
[2025-03-10 11:13] LABS: Microalbumin,Random Urine < 12.0 mg/L (NO RANGE EST.)
== END | disposition home or self-care (01) ==
PROVIDERS: PCP Family Medicine Geriatric Medicine; Referring Provider Family Medicine Geriatric Medicine; Visit Provider Family Medicine Geriatric Medicine
DX: E11.65 Type 2 diabetes mellitus with hyperglycemia (principal); E55.9 Vitamin D deficiency, unspecified; I10 Essential (primary) hypertension; E78.5 Hyperlipidemia, unspecified; M54.31 Sciatica, right side
CPT/HCPCS: 36415; 72110; 73502; 80053; 80061; 82043; 82570; 83036; 84443; 85025

== ENCOUNTER → 2025-03-31 | Outpatient (CLI) | payer MEDICARE, SELFPAY ==
--- NOTE | 2025-03-31 08:17 | MRI_ITS ---
PROCEDURE: SPINE LUMBAR (ROUTINE) 03/31/2025 REASON FOR EXAM: LUMBAR SPINAL STENOSIS TECHNIQUE: SPINE LUMBAR (ROUTINE) COMPARISON: March 10, 2025 FINDINGS: Vertebrae: No fracture is seen. Mildly heterogeneous bone marrow commensurate with age. No significant bone marrow edema is present but there is some fatty change and sclerosis at the opposing endplates of L2 and L3 related to disc disease. Alignment: Straightening of the normal lumbar lordosis. Conus Medullaris: Conus medullaris terminates at L1. No abnormal signal. L1-2: Mild, diffuse disc bulge. Moderate facet hypertrophy and thickening of ligamentum flavum. Small right facet joint synovial cyst is 11 x 7 x 5 mm. L2-3: Severe disc space narrowing is [id number] with diffuse disc osteophyte protrusion. Central stenosis to 10 mm AP. Moderate thickening of ligamentum flavum. Mild facet hypertrophy. Bilateral exit foraminal narrowing. Correlate with L2 radiculopathy. L3-4: Mild loss of disc height. Mild, diffuse disc bulge. Moderate facet hypertrophy and moderate thickening of ligamentum flavum. Borderline central stenosis. Bilateral exit foraminal narrowing. Correlate with L3 radiculopathy. L4-5: Mild loss of disc height mainly posteriorly. Mild, diffuse disc bulge. Severe left ligamentum thickening and moderate right thickening. Moderate left facet hypertrophy and mild right facet hypertrophy. No central stenosis. [id number]-right exit foraminal narrowing. Correlate with L4 radiculopathy. L5-S1: Focal disc protrusion anteriorly. Minimal diffuse disc bulge posteriorly. Severe facet hypertrophy. Sacrum: Unremarkable MRI/Spine Lumbar (Routine) IMPRESSION: Multilevel degenerative disc disease greatest at L2/3. Multiple sites of exit foraminal narrowing and stenosis outlined above. Reading Location: [id number]
--- OUTSIDE RECORDS SUMMARY | 2025-03-31 08:39 | XMS RPT_ITS | CCD ---
Author Organization [facility] Care Team Providers Care Patient Access Director Name Role Phone Isaias ESTRADA, Dr. King Sauceda Primary Care Provider Isaias ESTRADA, Dr. King Sauceda Attending Provider Isaias ESTRADA, Dr. King Sauceda Referring Provider [phone] Isaias, King Chi Primary Care Unavailable Isaias, King Chi Referring Unavailable Isaias, King Chi Attending Unavailable Isaias, King Chi Primary Care Unavailable Isaias, King Chi Referring Unavailable Isaias, King Chi Attending Unavailable Isaias, King Chi Primary Care Unavailable Isaias, King Chi Referring Unavailable Isaias, King Chi Attending Unavailable Isaias, King Chi Referring Unavailable Marvel Saunders Attending Unavailable Isaias, Kign Chi Primary Care Unavailable Isaias, King Chi Referring Unavailable Isaias, King Chi Attending Unavailable Isaias, King Chi Primary Care Unavailable Allergies Allergy Classification Reported Allergen(s) Allergy Type Date of Onset Reaction(s) Facility (6 sources) Adhesive Tape; Translations: [adhesive tape] Allergy to substance 01-12-2021 [facility] (6 sources) Penicillins; Translations: [Penicillins] Allergy to substance 01-12-2021 [facility] Medications Current Medications Medication Drug Class(es) Dates Sig (Normalized) Sig (Original) aspirin 81 mg delayed release oral tablet (5 sources) Platelet Aggregation Inhibitor, Nonsteroidal Anti-inflammatory Drug Start: 05-25-2020 take 1 tablet by mouth once daily Aspirin 81 MG tablet,delayed release (DR/EC) Active 81 mg PO DAILY@0800 May 25, 2020 12:00am [facility] atorvastatin 10 mg oral tablet (5 sources) HMG-CoA Reductase Inhibitor Start: 05-12-2015 take 1 tablet by mouth at bedtime Atorvastatin 10 MG tablet Active 10 mg PO AT BEDTIME May 12, 2015 12:00am cholecalciferol 0.05 mg oral capsule (5 sources) Vitamin D Start: 05-25-2020 Cholecalciferol (Vitamin D3) 50 MCG capsule Active 1000 U PO DAILY May 25, 2020 12:00am supplement Start: 05-25-2020 take 1000 [IU] by mo [facility] once daily Cholecalciferol (Vitamin D3) Active 1000 UNIT PO DAILY May 24, 2020 11:00pm metFORMIN hydrochloride 500 mg oral tablet (6 sources) Biguanide Start: 08-06-2024 take 1 tablet by mouth twice daily Metformin 500 mg tablet Active 500 mg PO TWICE A DAY August 06, 2024 11:39am Start: 05-25-2020 End: 08-06-2024 take 1 tablet by mouth once daily Metformin 500 MG tablet Discontinued 500 mg PO DAILY May 25, 2020 12:00am August 06, 2024 11:39am metoprolol tartrate 50 mg oral tablet (5 sources) beta-Adrenergic Syl Start: 05-12-2015 take 1 tablet by mouth twice daily Metoprolol Tartrate 50 MG tablet Active 50 mg PO TWICE A DAY May 12, 2015 12:00am heart Completed/Discontinued Medications Medication Drug Class(es) Dates Sig (Normalized) Sig (Original) acetaminophen 500 mg oral tablet (5 sources) Start: 05-12-2015 End: 10-07-2015 Acetaminophen (Non-Aspirin Extra Strength) 500 MG tablet Discontinued 500 mg PO NEEDED as needed for Pain May 12, 2015 12:00am October 07, 2015 1:50pm acetaminophen 325 mg / HYDROcodone bitartrate 5 mg oral tablet (15 sources) Opioid Agonist Start: 12-30-2020 End: 08-06-2024 Hydrocodone-Acetamin ophen 5-325 mg Tablet Discontinued 1 - 2 {tbl} PO EVERY 4 HOURS NEEDED as needed for pain 10 2 0 December 30, 2020 August 06, 2024 11:39am Start: 12-30-2020 End: 08-06-2024 Hydrocodone-Acetaminophen 5- 325 mg tablet Discontinued 1 - 2 {tbl} PO EVERY 6 HOURS as needed for pain 14 3 0 December 30, 2020 August 06, 2024 11:39am History of hernia repair Other specified postprocedural states Personal history of other diseases of the digestive system Start: 12-30-2020 take 1 tablet by naila th every four hours as needed Hydrocodone-Acetaminophen Active 1 - 2 TABLET PO EVERY 4 HOURS NEEDED 10 2 December 30, 2020 Start: 12-30-2020 take 1 tablet by naila th every six hours Hydrocodone-Acetaminophen Active 1 - 2 TABLET PO EVERY 6 HOURS 14 3 December 30, 2020 Start: 05-25-2020 End: 05-27-2020 Hydrocodone-Acetaminophen 1 TABLET tablet Discontinued 1 {tbl} PO EVERY 4 HOURS NEEDED as needed for Pain 10 2 May 25, 2020 May 26, 2020 12:00am May 27, 2020 12:02am Hernia Unspecified abdominal hernia without obstruction or gangrene Start: 05-25-2020 End: 05-27-2020 take 1 tablet by mouth every four hours as needed Hydrocodone-Acetaminophen Discontinued 1 TABLET PO EVERY 4 HOURS NEEDED 10 May 25, 2020 May 26, 2020 11:02pm diclofenac sodium 50 mg delayed release oral tablet (10 sources) Nonsteroidal Anti-inflammatory Drug Start: 09-22-2015 End: 10-07-2015 take 1 tablet by mouth twice daily at mealtime Diclofenac Sodium 50 MG tablet Discontinued 50 mg PO TWICE DAILY WITH MEALS September 22, 2015 1:00am October 07, 2015 1:50pm Start: 05-12-2015 End: 05-27-2015 take 1 tablet by mouth twice daily at mealtime Diclofenac Sodium 50 MG tablet Discontinued 50 mg PO TWICE DAILY WITH MEALS May 12, 2015 12:00am May 27, 2015 1:39pm Problems Active Problems Problem Classification Problem Date Documented Date Episodic/Chronic Abdominal hernia (10 sources) Hernia of abdominal cavity; Translations: [Unspecified abdominal hernia with obstruction, without gangrene] 12-30-2020 Episodic Comment on above: Above and at umbilic us Diabetes mellitus with complications (1 source) Type 2 diabetes mellitus with hyperglycemia; Translations: [Type 2 diabetes mellitus with hyperglycemia] Onset: 03-13-2025 Chronic Essential hypertension (1 source) Essential (primary) hypertension; Translations: [Essential (primary) hypertension] Onset: 09-25-2024 Chronic Open wounds of extremities (1 source) Laceration of right thumb; Translations: [Laceration without foreign body of right thumb without damage to nail, initial encounter] 08-06-2024 Episodic Residual codes; unclassified (10 sources) History of hernia repair; Translations: [Other specified postprocedural states] 01-12-2021 Episodic Comment on above: Inferior midline sup rapubic incision Spondylosis; intervertebral disc disorders; other back problems (1 source) Spinal stenosis, lumbar region without neurogenic claudication; Translations: [Spinal stenosis, lumbar region without neurogenic claudication] Onset: 03-19-2025 Episodic Past or Other Problems Problem Classification Problem Date Documented Da te Episodic/Chronic Immunizations and screening for infectious disease (1 source) Encounter for immunization; Translations: [Encounter for immunization] Onset: 08-06-2024 Episodic Other screening for suspected conditions (not mental disorders or infectious disease) (1 source) Encounter for screening mammogram for malignant neoplasm of breast; Translations: [Encounter for screening mammogram for malignant neoplasm of breast] Onset: 05-06-2024 Episodic Results Test Name Value Interpretation Reference Range Facility Absolute lymphocyte countOrd ered By: King Esparza on 03-10-2025 Lymphocytes Auto (Unsp spec) [#/Vol] 2.46 10*3/uL 0.83-4.51 [facility] Absolute neutrophil countOrd ered By: King Esparza on 03-10-2025 Neutrophils (Bld) [#/Vol] 4.9 10*3/uL 2.0-7.7 [facility] Anion gap in Serum or Plasma Ordered By: King Esparza on 03-10-2025 Anion gap [Moles/Vol] 13 mmol/L 5- [facility] BUN/creatinine ratioOrdered By: King Esparza on 03-10-2025 Urea nitrogen/Creatinine [Mass ratio] 16.6 mg/mg 10-20 [facility] Basophil percentageOrdered B y: King Esparza on 03-10-2025 Basophils/100 WBC (Bld) 0.6 % 0-1 [facility] Bilirubin, totalOrdered By: Knig Esparza on 03-10-2025 Bilirubin [Mass/Vol] 0.36 mg/dL 0.00-1.30 [facility] Blood platelets count (numbe r/volume)Ordered By: King Esparza on 03-10-2025 Platelets (Bld) [#/Vol] 336 10*3/uL 150-450 [facility] CBC W/Diff, Automatedon 02-25 Absolute Lymph 2.46 X10 3/uL Normal 0.83-4.51 [facility] Comment on above: Performed By: #### L [id number], L500.4100, L500.4050, L100.0100, [id number] #### [facility] Laboratory [address] [place], [address] Absolute Neut 4.9 X10 3/uL Normal 2.0-7.7 [facility] Comment on above: Performed By: #### L [id number], L500.4100, L500.4050, L100.0100, [id number] #### [facility] [address] [place], [address] IG% 0.200 Normal 0.0-0.9 [facility] Comment on above: Result Comment: IG% - Immature Granulocytes (promyelocytes, myelocytes and metamyelocytes) > 1% indicates that a LEFT SHIFT is Present. Performed By: #### L [id number], L500.4100, L500.4050, L100.0100, [id number] #### [facility] [address] [place], [address] Basophils/100 WBC (Bld) 0.6 % Normal 0-1 [facility] Comment on above: Performed By: #### L [id number], L500.4100, L500.4050, L100.0100, [id number] #### [facility] [address] [place], [address] Eosinophils/100 WBC (Bld) 1.6 % Normal 0-5 [facility] Comment on above: Performed By: #### L [id number], L500.4100, L500.4050, L100.0100, [id number] #### [facility] [address] [place], [address] Erythrocyte distribution width (RBC) [Ratio] 13.2 % Normal 11.6-14.6 [facility] Comment on above: Performed By: #### L [id number], L500.4100, L500.4050, L100.0100, [id number] #### [facility] [address] [place], [address] Hematocrit (Bld) [Volume fraction] 42.1 % Normal 37-47 [facility] Comment on above: Performed By: #### L [id number], L500.4100, L500.4050, L100.0100, [id number] #### [facility] [address] [place], [address] Hemoglobin (Bld) [Mass/Vol] 14.4 g/dL Normal 12.0-15.0 [facility] Comment on above: Performed By: #### L [id number], L500.4100, L500.4050, L100.0100, [id number] #### [facility] [address] [place], [address] Lymphocytes/100 WBC (Bld) 29.6 % Normal 19-41 [facility] Comment on above: Performed By: #### L [id number], L500.4100, L500.4050, L100.0100, [id number] #### [facility] [address] [place], [address] MCH (RBC) [Entitic mass] 29.2 pg Normal 27.0-32.0 [facility] Comment on above: Performed By: #### L [id number], L500.4100, L500.4050, L100.0100, [id number] #### [facility] [address] [place], [address] MCHC (RBC) [Mass/Vol] 34.2 g/dL Normal 32-36 [facility] Comment on above: Performed By: #### L [id number], L500.4100, L500.4050, L100.0100, [id number] #### [facility] [address] [place], [address] MCV (RBC) [Entitic vol] 85.4 fL Normal 81-99 [facility] Comment on above: Performed By: #### L [id number], L500.4100, L500.4050, L100.0100, [id number] #### [facility] [address] [place], [address] Monocytes/100 WBC (Bld) 8.9 % Normal 0-10 [facility] Comment on above: Performed By: #### L [id number], L500.4100, L500.4050, L100.0100, [id number] #### [facility] [address] [place], [address] Neutrophils/100 WBC (Bld) 59.1 % Normal 47-70 [facility] Comment on above: Performed By: #### L [id number], L500.4100, L500.4050, L100.0100, [id number] #### [facility] [address] [place], [address] Platelet mean volume (Bld) [Entitic vol] 9.7 fL Normal 6.2-12.0 [facility] Comment on above: Performed By: #### L 501.9985, L500.4100, L500.4050, L100.0100, [id number] #### [facility] [address] [place], [address] Platelets (Bld) [#/Vol] 336 10*3/uL Normal 150-450 [facility] Comment on above: Performed By: #### L 501.9985, L500.4100, L500.4050, L100.0100, [id number] #### [facility] [address] [place], [address] RBC (Bld) [#/Vol] 4.93 10*6/uL Normal 4.2-5.4 [facility] Comment on above: Performed By: #### L [id number], L500.4100, L500.4050, L100.0100, [id number] #### [facility] [address] [place], [address] RDW SD 41.1 fl Normal 35.1-43.9 [facility] Comment on above: Performed By: #### L 501.9985, L500.4100, L500.4050, L100.0100, [id number] #### [facility] [address] [place], [address] WBC (Bld) [#/Vol] 8.3 10*3/uL Normal 4.4-11.0 [facility] Comment on above: Performed By: #### L 501.9985, L500.4100, L500.4050, L100.0100, [id number] #### [facility] [address] [place] [place], [address] Calculated very low density lipoprotein (VLDL) cholesterol measurementOrdered By: King Esparza on 03-10-2025 Calculated very low density lipoprotein (VLDL) cholesterol measurement 91 mg/dL High 5-40 [facility] Carbon dioxide, total [Moles /volume] in Central venous bloodOrdered By: King Esparza on 03-10-2025 CO2 [Moles/Vol] 21.6 mmol/L 21.0-32.0 [facility] Chloride assayOrdered By: Ra Esparza on 03-10-2025 Chloride [Moles/Vol] 103 mmol/L 98-108 [facility] Comprehensive Metabolic Prof ilon 03-10-2025 Albumin [Mass/Vol] 4.4 g/dL Normal 3.4-4.8 [facility] Comment on above: Order Comment: VITD Performed By: #### L 501.9985, L500.4100, L500.4050, L100.0100, [id number] #### [facility] Laboratory [address] [place], [address] Albumin/Globulin [Mass ratio] 1.6 {ratio} Normal 0.9-2.4 [facility] Comment on above: Order Comment: VITD Performed By: #### L 501.9985, L500.4100, L500.4050, L100.0100, [id number] #### [facility] Laboratory [address] [place], [address] ALK PHOS 82 U/L Normal 35-104 [facility] Comment on above: Order Comment: VITD Performed By: #### L 501.9985, L500.4100, L500.4050, L100.0100, [id number] #### [facility] [address] [place], [address] ALT [Catalytic activity/Vol] 24 U/L Normal <=34 [facility] Comment on above: Order Comment: VITD Performed By: #### L 501.9985, L500.4100, L500.4050, L100.0100, [id number] #### [facility] [address] [place], [address] AST [Catalytic activity/Vol] 26 U/L Normal <=31 [facility] Comment on above: Order Comment: VITD Performed By: #### L 501.9985, L500.4100, L500.4050, L100.0100, [id number] #### [facility] Laboratory [address] [place], [address] Bilirubin [Mass/Vol] 0.36 mg/dL Normal 0.00-1.30 [facility] Comment on above: Order Comment: VITD Performed By: #### L 501.9985, L500.4100, L500.4050, L100.0100, [id number] #### [facility] [address] [place], [address] BUN/CRE 16.6 RATIO Normal 10-20 [facility] Comment on above: Order Comment: VITD Performed By: #### L 501.9985, L500.4100, L500.4050, L100.0100, [id number] #### [facility] [address] [place], [address] Calcium [Mass/Vol] 9.3 mg/dL Normal 7.6-11.0 [facility] Comment on above: Order Comment: VITD Performed By: #### L 501.9985, L500.4100, L500.4050, L100.0100, [id number] #### [facility] Laboratory [address] [place], [address] Chloride [Moles/Vol] 103 mmol/L Normal 98-108 [facility] Comment on above: Order Comment: VITD Performed By: #### L 501.9985, L500.4100, L500.4050, L100.0100, [id number] #### [facility] Laboratory [address] [place], [address] CO2 [Moles/Vol] 21.6 mmol/L Normal 21.0-32.0 [facility] Comment on above: Order Comment: VITD Performed By: #### L 501.9985, L500.4100, L500.4050, L100.0100, [id number] #### [facility] Laboratory [address] [place], [address] Creatinine [Mass/Vol] 0.63 mg/dL Low 0.70-1.20 [facility] Comment on above: Order Comment: VITD Performed By: #### L 501.9985, L500.4100, L500.4050, L100.0100, [id number] #### [facility] Laboratory [address] [place], [address] GAP 13 Normal 5-15 [facility] Comment on above: Order Comment: VITD Performed By: #### L 501.9985, L500.4100, L500.4050, L100.0100, L501.9520 #### [facility] Laboratory [address] [place], [address] GFR/1.73 sq M.predicted among non-blacks MDRD (S/P/Bld) [Vol rate/Area] 93 mL/min/{1.73_m2} Normal >60 [facility] Comment on above: Order Comment: VITD Result Comment: mL/m in/1.73m2 CKD-EPI Creatinine Equation (2020) Performed By: #### L 501.9985, L500.4100, L500.4050, L100.0100, L501.9520 #### [facility] [address] [place], [address] Globulin (S) [Mass/Vol] 2.7 g/dL Normal 2.2-4.2 [facility] Comment on above: Order Comment: VITD Performed By: #### L 501.9985, L500.4100, L500.4050, L100.0100, L501.9520 #### [facility] [address] [place], [address] Glucose [Mass/Vol] 165 mg/dL High 70-99 [facility] Comment on above: Order Comment: VITD Performed By: #### L 501.9985, L500.4100, L500.4050, L100.0100, L501.9520 #### [facility] [address] [place], [address] Potassium [Moles/Vol] 4.2 mmol/L Normal 3.3-5.1 [facility] Comment on above: Order Comment: VITD Performed By: #### L 501.9985, L500.4100, L500.4050, L100.0100, L501.9520 #### [facility] Laboratory [address] [place], [address] Sodium [Moles/Vol] 138 mmol/L Normal 133-145 [facility] Comment on above: Order Comment: VITD Performed By: #### L 501.9985, L500.4100, L500.4050, L100.0100, L501.9520 #### [facility] Laboratory [address] [place], [address] T PROT 7.1 g/dL Normal 5.9-8.4 [facility] Comment on above: Order Comment: VITD Performed By: #### L 501.9985, L500.4100, L500.4050, L100.0100, L501.9520 #### [facility] Laboratory [address] [place], [address] Urea nitrogen [Mass/Vol] 10 mg/dL Normal 4-19 [facility] Comment on above: Order Comment: VITD Performed By: #### L 501.9985, L500.4100, L500.4050, L100.0100, L501.9520 #### [facility] Laboratory [address] [place], [address] Eosinophil %Ordered By: King Esparza on 03-10-2025 Eosinophils/100 WBC (Bld) 1.6 % 0-5 [facility] Erythrocyte distribution wid th ratioOrdered By: King Esparza on 03-10-2025 Erythrocyte distribution width (RBC) [Ratio] 13.2 % 11.6-14.6 [facility] Glomerular filtration rate ( GFR) estimation/1.73 sq m using serum, plasma, or whole bOrdered By: King Esparza on 03-10-2025 GFR/1.73 sq M.predicted among non-blacks MDRD (S/P/Bld) [Vol rate/Area] 93 mL/min/{1.73_m2} >60 [facility] Comment on above: mL/min/1.73m2 CKD-EP I Creatinine Equation (2020) HIP, UNI W/ Pelvis 2-3 Views on 03-10-2025 HIP, UNI W/ Pelvis 2-3 Views [facility] [address] [place] [address] HIP, UNI W/ Pelvis 2-3 Views MR#: [id number] Acct: [id number] Name: NILE SIERRA Rep #: [id number] : [id number] F 75 From: [place] PCP: Dr. King Esparza MD Status: REG CLI Study: HIP, UNI W/ Pelvis 2-3 Views Date of Exam: Exam# [id number] Ordering Dr: King Esparza MD PROCEDURE: HIP, UNI W/ PELVIS 2-3 VIEWS 03/10/2025 REASON FOR EXAM: RIGHT SIDE SCIATICA TECHNIQUE: HIP, UNI W/ PELVIS 2-3 VIEWS COMPARISON: None FINDINGS: Bones: There are no fractures or dislocations. Joints: The right prosthetic hip device appears to be in satisfactory position without evidence of fracture or loosening. The visualized portion of the left prosthetic device appears to be in satisfactory position without evidence of fracture or loosening. Please note that the distal portion is not included on this study. Mild arthritic changes are seen involving the SI joints and pubic symphysis. Soft tissues: Unremarkable. Other: Mild degenerative changes of the lower lumbar spine are noted. The visualized sacrum is unremarkable. RAD/HIP, UNI W/ Pelvis 2-3 Views IMPRESSION: Both prosthetic hip devices appear to be in satisfactory position without evidence of fracture or loosening as described above. Degenerative changes lower lumbar spine. Degenerative changes bilateral SI joints and pubic symphysis. No acute fractures or dislocations. Reading Location: [id number] CC: Dr. King Esparza MD [employer]: Signed Normal [facility] Hematocrit Auto (Bld) [Volum e fraction]Ordered By: King Esparza on 03-10-2025 Hematocrit (Bld) [Volume fraction] 42.1 % 37-47 [facility] Hemoglobin A1con 03-10-2025 HbA1c (Bld) [Mass fraction] 7.2 % High <=5.6 [facility] Comment on above: Result Comment: Norm al < 5.7 % Prediabetic 5.7 - 6.4 % Diabetic >or= 6.5 % Please note range changes. Performed By: #### L 500.4100, L506.1000, L100.0100, L501.9985, L500.4050, L501.9520 #### [facility] Laboratory [address] [facility] [place], [address] Hemoglobin A1c percentageOrd ered By: King Esparza on 03-10-2025 HbA1c (Bld) [Mass fraction] 7.2 % High <5.7 [facility] Comment on above: Normal < 5.7 % Predi abetic 5.7 - 6.4 % Diabetic >or= 6.5 % Please note range changes. Hemoglobin measurementOrdere d By: King Esparza on 03-10-2025 Hemoglobin (Bld) [Mass/Vol] 14.4 g/dL 12.0-15.0 [facility] Immature granulocyte percent ageOrdered By: King Esparza on 03-10-2025 Immature granulocytes/100 WBC (Bld) 0.200 % 0.0-0.9 [facility] Comment on above: IG% - Immature Granu locytes (promyelocytes, myelocytes and metamyelocytes) > 1% indicates that a LEFT SHIFT is Present. L/S Spine Min 4 Viewson 02-25 L/S Spine Min 4 Views [facility] Imaging Services [address] [place] [address] L/S Spine Min 4 Views MR#: [id number] Acct: [id number] Name: NILE SIERRA Rep #: [id number] : 1950 F 75 From: [place] PCP: Dr. King Esparza MD Status: REG CLI Study: L/S Spine Min 4 Views Date of Exam: 03/10/25 Exam# [id number] Ordering Dr: King Esparza MD PROCEDURE: L/S SPINE MIN 4 VIEWS 03/10/2025 REASON FOR EXAM: RIGHT SIDE SCIATICA TECHNIQUE: L/S SPINE MIN 4 VIEWS COMPARISON: None FINDINGS: Four views of the lumbosacral spine demonstrate 5 lumbar-type vertebral bodies below the last set of paired ribs. There is approximately 2 mm of retrolisthesis of L4 in relationship to L5 and 2 mm of retrolisthesis of L3 in relationship to L4. Degenerative changes of the lumbar spine are noted. There is juxta articular sclerosis involving the inferior endplate of the L2 vertebral body and superior endplate of the L3 vertebral body. Degenerative disc disease is seen involving the L2-L3, L3-L4, L4-L5 and L5-S1 levels. This is most pronounced at the L2-L3 level. Mild arteriosclerotic vascular disease of the aorta is noted. Moderate amount of stool and gas is present in the visualized portions of the colon RAD/L/S Spine Min 4 Views IMPRESSION: MRI of the lumbar spine may be of value for further evaluation of the juxta-articular sclerosis involving the inferior endplate of the L2 vertebral body and superior endplate of the L3 vertebral body. This will also further evaluate the disc spaces and nerve roots if clinically warranted. Reading Location: [id number] CC: Dr. King Esparza MD [employer]: Signed Normal [facility] LDL calc ser/plasOrdered By: King Esparza on 03-10-2025 Cholesterol in LDL [Mass/Vol] 36 mg/dL [facility] Comment on above: Nrrmhbfojh=732-809 m g/dL & Higher Msbn=601 mg/dL or greater Laboratory - Chemistry and C hemistry - challengeOrdered By: King Esparza on 03-10-2025 AST [Catalytic activity/Vol] 26 U/L <32 [facility] Lipid Profileon 03-10-2025 CHOL:HDL 4.69 Normal [facility] Comment on above: Performed By: #### L 501.9985, L500.4100, L500.4050, L100.0100, L501.9520 #### [facility] Laboratory [facility] [place], [address] Cholesterol [Mass/Vol] 161 mg/dL Normal <=200 [facility] Comment on above: Result Comment: Chol esterol level, Desirable <200 mg/dL Borderline high cholesterol 200-239 mg/dL High cholesterol >=240 mg/dL Recommendations of the NCEP Adult Treatment Panel for the following risk-cutoff thresholds for the [place] population. Performed By: #### L 501.9985, L500.4100, L500.4050, L100.0100, L501.9520 #### [facility] Laboratory [address] [place], [address] Cholesterol in HDL [Mass/Vol] 34 mg/dL Low [facility] Comment on above: Result Comment: Lana onal Cholesterol Education Program (NCEP) guidelines: <40 mg/dL: Low HDL-cholesterol (major risk factor for CHD) >= 60 mg/dL: High HDL-cholesterol (negative risk factor for CHD) HDL-cholesterol is affected by a number of factors, e.g. smoking, exercise, hormones, sex and age. Performed By: #### L 501.9985, L500.4100, L500.4050, L100.0100, L501.9520 #### [facility] Laboratory [address] [place], [address] Cholesterol in LDL [Mass/Vol] 36 mg/dL Normal [facility] Comment on above: Result Comment: Bord rysazq=533-860 mg/dL Higher Dhpz=287 mg/dL or greater Performed By: #### L 501.9985, L500.4100, L500.4050, L100.0100, L501.9520 #### [facility] Laboratory [address] [place], [address] Cholesterol in VLDL [Mass/Vol] 91 mg/dL High 5-40 [facility] Comment on above: Performed By: #### L 501.9985, L500.4100, L500.4050, L100.0100, L501.9520 #### [facility] Laboratory [address] [place], [address] Triglyceride [Mass/Vol] 455 mg/dL High [facility] Comment on above: Result Comment: The drugs N-Acetylcysteine and Metamizole may falsely depress this assay. Normal range: <150 mg/dL Borderline High: 150-199 mg/dL High: 200-499 mg/dL Very High: >500 mg/dL Performed By: #### L 501.9985, L500.4100, L500.4050, L100.0100, L501.9520 #### [facility] Laboratory [address] [place], [address] Lymphocyte %Ordered By: King Callawayok on 03-10-2025 Lymphocytes/100 WBC (Bld) 29.6 % 19-41 [facility] MCV (mean corpuscular volume ) determinationOrdered By: King Isaias on 03-10-2025 MCV (RBC) [Entitic vol] 85.4 fL 81-99 [facility] Mean corpuscular hemoglobin (MCH) determinationOrdered By: [facility] on 03-10-2025 MCH (RBC) [Entitic mass] 29.2 pg 27.0-32.0 [facility] Mean corpuscular hemoglobin concentration (MCHC) determinationOrdered [facility]-10-2025 MCHC (RBC) [Mass/Vol] 34.2 g/dL 32-36 [facility] Mean platelet volume determi nationOrdered By: King Isaias on 03-10-2025 Platelet mean volume (Bld) [Entitic vol] 9.7 fL 6.2-12.0 [facility] Microalb:Creat Ratio,Random URon 03-10-2025 MALB:CREAT UNABLE TO CALCULATE Normal [facility] Comment on above: Performed By: #### L 500.4100, L506.1000, L100.0100, L501.9985, L500.4050, L501.9520 #### [facility] Laboratory [address] [place], [address] MICROALBUMIN,UR < 12.0 Normal NO RANGE EST. [facility] Comment on above: Performed By: #### L 500.4100, L506.1000, L100.0100, L501.9954, L500.4050, L501.9536 #### [facility] Laboratory [place], [address] Microalbumin/creat ratio urO rdered By: King Esparza on 03-10-2025 Urine microalbumin/creatinine ratio measurement UNABLE TO CALCULATE mg/g CRE [facility] Monocyte percentageOrdered B y: King Esparza on 03-10-2025 Monocytes/100 WBC (Bld) 8.9 % 0-10 [facility] Neutrophil %Ordered By: King Esparza on 03-10-2025 Neutrophils/100 WBC (Bld) 59.1 % 47-70 [facility] Potassium measurement (mass/ volume)Ordered By: King Esparza on 03-10-2025 Potassium (Unsp spec) [Mass/Vol] 4.2 mmol/L 3.3-5.1 [facility] RBC Auto (Bld) [#/Vol]Ordere d By: King Esparza on 03-10-2025 RBC (Bld) [#/Vol] 4.93 10*6/uL 4.2-5.4 [facility] RDWOrdered By: King Esparza on 0 03-10-2025 RDW 41.1 fl 35.1-43.9 [facility] Random urine creatinine fernando urement (mass/volume)Ordered By: King Esparza 03-10-2025 Creatinine Unsp time (U) [Mass/Vol] 171.00 mg/dL 28.00-217.00 [facility] Screening total cholesterol/ high density lipoprotein (HDL) cholesterol ratioOrdered By: King Esparza 03-10-2025 Cholesterol.total/Choles terol in HDL [Mass ratio] 4.69 {ratio} [facility] Serum creatinine measurement (mass/volume)Ordered By: King Esparza on 03-10-2025 Creatinine [Mass/Vol] 0.63 mg/dL Low 0.70-1.20 [facility] Serum globulin measurementOr dered By: King Esparza 03-10-2025 Globulin (S) [Mass/Vol] 2.7 g/dL 2.2-4.2 [facility] Serum glucose measurement (m ass/volume)Ordered By: King Esparza 03-10-2025 Glucose [Mass/Vol] 165 mg/dL High 70-99 [facility] Serum or plasma alanine collins otransferase (ALT) measurementOrdered By: King Esparza 03-10-2025 ALT [Catalytic activity/Vol] 24 U/L <35 [facility] Serum or plasma albumin fernando urement (mass/volume)Ordered By: King Esparza 03-10-2025 Albumin [Mass/Vol] 4.4 g/dL 3.4-4.8 [facility] Serum or plasma albumin/glob ulin mass ratioOrdered By: King Isaias 03-10-2025 Albumin/Globulin [Mass ratio] 1.6 {ratio} 0.9-2.4 [facility] Serum or plasma alkaline [place] sphatase measurementOrdered By: King Esparza 03-10-2025 ALP [Catalytic activity/Vol] 82 U/L 35-104 [facility] Serum or plasma calcium fernando urement (mass/volume)Ordered By: King Esparza 03-10-2025 Calcium [Mass/Vol] 9.3 mg/dL 7.6-11.0 [facility] Serum or plasma cholesterol in HDL measurement (mass/volume)Ordered By: King Isaias 03-10-2025 Cholesterol in HDL [Mass/Vol] 34 mg/dL Low >40 [facility] Comment on above: National Cholesterol Education Program (NCEP) guidelines:<40 mg/dL: Low HDL-cholesterol (major risk factor for CHD)>= 60 mg/dL: High HDL-cholesterol (negative risk factor for CHD)HDL-cholesterol is affected by a number of factors, e.g. smoking, exercise, hormones, sex and age. Serum or plasma cholesterol measurement (mass/volume)Ordered By: King Esparza 03-10-2025 Cholesterol [Mass/Vol] 161 mg/dL <201 [facility] Comment on above: Cholesterol level, D esirable <200 mg/dLBorderline high cholesterol 200-239 mg/dLHigh cholesterol >=240 mg/dLRecommendations of the NCEP Adult Treatment Panel for the following risk-cutoff thresholds for the [place] population. Serum or plasma urea nitroge n measurement (mass/volume)Ordered By: King Esparza on 03-10-2025 Urea nitrogen [Mass/Vol] 10 mg/dL 4-19 [facility] Sodium levelOrdered By: King Esparza on 03-10-2025 Sodium [Moles/Vol] 138 mmol/L 133-145 [facility] TSH DL <= 0.005 mIU/L QnOrde red By: King Esparza on 03-10-2025 TSH Qn 2.310 uIU/mL 0.300-4.200 [facility] Thyroid Stim Hormone (TSH)on 03-10-2025 TSH 2.310 uIU/mL Normal 0.300-4.200 [facility] Comment on above: Performed By: #### L 501.9985, L500.4100, L500.4050, L100.0100, L501.9520 #### [facility] Laboratory [address] [place], [place] [address]all [facility] [place], [place], [address] Total proteinOrdered By: King Esparza 03-10-2025 Protein [Mass/Vol] 7.1 g/dL 5.9-8.4 [facility] Triglycerides measurementOrd ered By: King Esparza 03-10-2025 Triglyceride [Mass/Vol] 455 mg/dL High <199 [facility] Comment on above: The drugs N-Acetylcy steine and Metamizole may falsely depress this assay. Normal range: <150 mg/dLBorderline High: 150-199 mg/dLHigh: 200-499 mg/dLVery High: >500 mg/dL Urine albumin measurement detection limit of 20 mg/L or less (mass/volume)Ordered By: King Esparza on 03-10-2025 Albumin DL <= 20 mg/L (U) [Mass/Vol] < 12.0 mg/L NO RANGE EST. [facility] White blood cell (WBC) count Ordered By: King Esparza on 03-10-2025 WBC (Bld) [#/Vol] 8.3 10*3/uL 4.4-11.0 [facility] CBC W/Diff, Automatedon Absolute Lymph 2.28 X10 3/uL Normal 0.83-4.51 [facility] Comment on above: Performed By: #### L 500.4100, L506.1000, L100.0100, L501.9985, L500.4050, L501.9520 #### [facility] Laboratory [address] [place], [address] Absolute Neut 5.5 X10 3/uL Normal 2.0-7.7 [facility] Comment on above: Performed By: #### L 500.4100, L506.1000, L100.0100, L501.9985, L500.4050, L501.9520 #### [facility] Laboratory [address] [place], [address] Basophils/100 WBC (Bld) 0.5 % Normal 0-1 [facility] Comment on above: Performed By: #### L 500.4100, L506.1000, L100.0100, L501.9985, L500.4050, L501.9520 #### [facility] Laboratory [address] [place], [address] Eosinophils/100 WBC (Bld) 1.5 % Normal 0-5 [facility] Comment on above: Performed By: #### L 500.4100, L506.1000, L100.0100, L501.9985, L500.4050, L501.9520 #### [facility] Laboratory [address] [place], [address] Erythrocyte distribution width (RBC) [Ratio] 13.2 % Normal 11.6-14.6 [facility] Comment on above: Performed By: #### L 500.4100, L506.1000, L100.0100, L501.9985, L500.4050, L501.9520 #### [facility] Laboratory [address] [place], [address] Hematocrit (Bld) [Volume fraction] 43.0 % Normal 37-47 [facility] Comment on above: Performed By: #### L 500.4100, L506.1000, L100.0100, L501.9985, L500.4050, L501.9520 #### [facility] Laboratory [address] [place], [address] Hemoglobin (Bld) [Mass/Vol] 14.2 g/dL Normal 12.0-15.0 [facility] Comment on above: Performed By: #### L 500.4100, L506.1000, L100.0100, L501.9985, L500.4050, L501.9520 #### [facility] Laboratory [address] [place], [address] IG% 0.300 Normal 0.0-0.9 [facility] Comment on above: Result Comment: IG% - Immature Granulocytes (promyelocytes, myelocytes and metamyelocytes) > 1% indicates that a LEFT SHIFT is Present. Performed By: #### L 500.4100, L506.1000, L100.0100, L501.9985, L500.4050, L501.9520 #### [facility] Laboratory [address] [place], [address] Lymphocytes/100 WBC (Bld) 26.3 % Normal 19-41 [facility] Comment on above: Performed By: #### L 500.4100, L506.1000, L100.0100, L501.9985, L500.4050, L501.9520 #### [facility] Laboratory [address] [place], [address] MCH (RBC) [Entitic mass] 28.5 pg Normal 27.0-32.0 [facility] Comment on above: Performed By: #### L 500.4100, L506.1000, L100.0100, L501.9985, L500.4050, L501.9520 #### [facility] Laboratory [address] [place] [place], [address] MCHC (RBC) [Mass/Vol] 33.0 g/dL Normal 32-36 [facility] Comment on above: Performed By: #### L 500.4100, L506.1000, L100.0100, L501.9985, L500.4050, L501.9520 #### [facility] Laboratory [address] [place], [address] MCV (RBC) [Entitic vol] 86.3 fL Normal 81-99 [facility] Comment on above: Performed By: #### L 500.4100, L506.1000, L100.0100, L501.9985, L500.4050, L501.9520 #### [facility] Laboratory [address] [place], [address] Monocytes/100 WBC (Bld) 7.7 % Normal 0-10 [facility] Comment on above: Performed By: #### L 500.4100, L506.1000, L100.0100, L501.9985, L500.4050, L501.9520 #### [facility] Laboratory [address] [place], [address] Neutrophils/100 WBC (Bld) 63.7 % Normal 47-70 [facility] Comment on above: Performed By: #### L 500.4100, L506.1000, L100.0100, L501.9985, L500.4050, L501.9520 #### [facility] Laboratory [address] [place], [address] Nucleated RBC (Bld) [#/Vol] 0 10*3/uL Normal 0-5 [facility] Comment on above: Performed By: #### L 500.4100, L506.1000, L100.0100, L501.9985, L500.4050, L501.9520 #### [facility] Laboratory [address] [place], [address] Platelet mean volume (Bld) [Entitic vol] 9.0 fL Normal 6.2-12.0 [facility] Comment on above: Performed By: #### L 500.4100, L506.1000, L100.0100, L501.9985, L500.4050, L501.9520 #### [facility] Laboratory [address] [place], [address] Platelets (Bld) [#/Vol] 352 10*3/uL Normal 150-450 [facility] Comment on above: Performed By: #### L 500.4100, L506.1000, L100.0100, L501.9985, L500.4050, L501.9520 #### [facility] Laboratory [address] [place], [address] RBC (Bld) [#/Vol] 4.98 10*6/uL Normal 4.2-5.4 [facility] Comment on above: Performed By: #### L 500.4100, L506.1000, L100.0100, L501.9985, L500.4050, L501.9520 #### [facility] Laboratory [address] [place], [address] RDW SD 41.2 fl Normal 35.1-43.9 [facility] Comment on above: Performed By: #### L 500.4100, L506.1000, L100.0100, L501.9985, L500.4050, L501.9520 #### [facility] Laboratory [address] [place], [address] WBC (Bld) [#/Vol] 8.7 10*3/uL Normal 4.4-11.0 [facility] Comment on above: Performed By: #### L 500.4100, L506.1000, L100.0100, L501.9985, L500.4050, L501.9520 #### [facility] Laboratory [address] [place], [address] Comprehensive Metabolic Prof ilon 09-05-2024 Albumin [Mass/Vol] 3.7 g/dL Normal 3.2-5.0 [facility] Comment on above: Performed By: #### L 500.4100, L506.1000, L100.0100, L501.9985, L500.4050, L501.9520 #### [facility] Laboratory [address] [place], [address] Albumin/Globulin [Mass ratio] 1.0 {ratio} Normal 0.9-2.4 [facility] Comment on above: Performed By: #### L 500.4100, L506.1000, L100.0100, L501.9985, L500.4050, L501.9520 #### [facility] Laboratory [address] [place], [address] ALK P 85 U/L Normal 45-117 [facility] Comment on above: Performed By: #### L 500.4100, L506.1000, L100.0100, L501.9985, L500.4050, L501.9520 #### [facility] Laboratory [address] [place], [address] ALT [Catalytic activity/Vol] 29 U/L Normal 13-56 [facility] Comment on above: Performed By: #### L 500.4100, L506.1000, L100.0100, L501.9985, L500.4050, L501.9520 #### [facility] Laboratory [address] [place], [address] AST [Catalytic activity/Vol] 20 U/L Normal 15-37 [facility] Comment on above: Performed By: #### L 500.4100, L506.1000, L100.0100, L501.9985, L500.4050, L501.9520 #### [facility] Laboratory [address] [place], [address] Bilirubin [Mass/Vol] 0.30 mg/dL Normal 0.20-1.00 [facility] Comment on above: Result Comment: For patients on eltrombopag therapy, use of Dimension [place] TBIL is not recommended. Performed By: #### L 500.4100, L506.1000, L100.0100, L501.9985, L500.4050, L501.9520 #### [facility] Laboratory [address] [place], [address] BUN/CRE 10.8 RATIO Normal 10-20 [facility] Comment on above: Performed By: #### L 500.4100, L506.1000, L100.0100, L501.9985, L500.4050, L501.9520 #### [facility] Laboratory [address] [place], [address] CA,Total 9.0 mg/dL Normal 8.5-10.1 [facility] Comment on above: Performed By: #### L 500.4100, L506.1000, L100.0100, L501.9985, L500.4050, L501.9520 #### [facility] Laboratory [address] [place], [address] Chloride [Moles/Vol] 105 mmol/L Normal 98-107 [facility] Comment on above: Performed By: #### L 500.4100, L506.1000, L100.0100, L501.9985, L500.4050, L501.9520 #### [facility] Laboratory [address] [place], [address] CO2 [Moles/Vol] 27.0 mmol/L Normal 21.0-32.0 [facility] Comment on above: Performed By: #### L 500.4100, L506.1000, L100.0100, L501.9985, L500.4050, L501.9520 #### [facility] Laboratory [address] [place], [address] Creatinine [Mass/Vol] 0.65 mg/dL Normal 0.55-1.02 [facility] Comment on above: Result Comment: The validity of the calculated GFR GFRAA in patients over 70 years has not been determined. Clinical correlation is essential. Performed By: #### L 500.4100, L506.1000, L100.0100, L501.9985, L500.4050, L501.9520 #### [facility] Laboratory [address] [place], [address] EST GFR - AA 115 mL/min Normal >60 [facility] Comment on above: Result Comment: Afri can [place] GFR Calc Performed By: #### L 500.4100, L506.1000, L100.0100, L501.9985, L500.4050, L501.9520 #### [facility] Laboratory [address] [place], [address] GAP 5 Normal 5-15 [facility] Comment on above: Performed By: #### L 500.4100, L506.1000, L100.0100, L501.9985, L500.4050, L501.9520 #### [facility] Laboratory [address] [place], [address] GFR/1.73 sq M.predicted among non-blacks MDRD (S/P/Bld) [Vol rate/Area] 95 mL/min/{1.73_m2} Normal >60 [facility] Comment on above: Result Comment: Non- GFR Calc Performed By: #### L 500.4100, L506.1000, L100.0100, L501.9985, L500.4050, L501.9520 #### [facility] Laboratory [address] [place], [address] Globulin (S) [Mass/Vol] 3.8 g/dL Normal 2.2-4.2 [facility] Comment on above: Performed By: #### L 500.4100, L506.1000, L100.0100, L501.9985, L500.4050, L501.9520 #### [facility] Laboratory [address] [place], [address] Glucose [Mass/Vol] 147 mg/dL High 74-106 [facility] Comment on above: Result Comment: Fast ing Glucose result greater than or equal to 126 mg/dL suggests DIABETES MELLITUS per A.D.A. criteria. Performed By: #### L 500.4100, L506.1000, L100.0100, L501.9985, L500.4050, L501.9520 #### [facility] Laboratory [address] [place], [address] Potassium [Moles/Vol] 4.2 mmol/L Normal 3.5-5.1 [facility] Comment on above: Performed By: #### L 500.4100, L506.1000, L100.0100, L501.9985, L500.4050, L501.9520 #### [facility] Laboratory [address] [place], [address] Sodium [Moles/Vol] 138 mmol/L Normal 136-145 [facility] Comment on above: Performed By: #### L 500.4100, L506.1000, L100.0100, L501.9985, L500.4050, L501.9520 #### [facility] [address] [place], [address] T PROT 7.5 g/dL Normal 6.4-8.2 [facility] Comment on above: Performed By: #### L 500.4100, L506.1000, L100.0100, L501.9985, L500.4050, L501.9520 #### [facility] [address] [place], [address] Urea nitrogen [Mass/Vol] 7 mg/dL Normal 7-18 [facility] Comment on above: Performed By: #### L 500.4100, L506.1000, L100.0100, L501.9985, L500.4050, L501.9520 #### [facility] [address] [place], [address] Hemoglobin A1con 09-05-2024 HbA1c (Bld) [Mass fraction] 6.7 % High 3.8-5.6 [facility] Comment on above: Result Comment: Norm al < 5.7 % Prediabetic 5.7 - 6.4 % Diabetic >or= 6.5 % Please note range changes. Performed By: #### L 500.4100, L506.1000, L100.0100, L501.9985, L500.4050, L501.9520 #### [facility] [address] [place], [address] Lipid Profileon 09-05-2024 Cholesterol [Mass/Vol] 144 mg/dL Normal 200 [facility] Comment on above: Result Comment: <200 mg/dL Desirable 200-240 mg/dL Borderline >240 mg/dL High Risk Performed By: #### L 500.4100, L506.1000, L100.0100, L501.9985, L500.4050, L501.9520 #### [facility] [address] [place], [address] Cholesterol in HDL [Mass/Vol] 40 mg/dL Normal [facility] Comment on above: Result Comment: The drugs N-Acetylcysteine and Metamizole may falsely depress this assay. Reference Range HDL <40 mg/dL Low HDL Cholesterol HDL >or= 60 mg/dL High HDL Cholesterol Performed By: #### L 500.4100, L506.1000, L100.0100, L501.9985, L500.4050, L501.9520 #### [facility] [address] [place], [address] Cholesterol in LDL [Mass/Vol] 42 mg/dL Normal 0-130 [facility] Comment on above: Performed By: #### L 500.4100, L506.1000, L100.0100, L501.9985, L500.4050, L501.9520 #### [facility] [address] [place] [place], [address] Cholesterol in VLDL [Mass/Vol] 62 mg/dL High 5-40 [facility] Comment on above: Performed By: #### L 500.4100, L506.1000, L100.0100, L501.9985, L500.4050, L501.9520 #### [facility] [address] [place], [address] Triglyceride [Mass/Vol] 312 mg/dL High [facility] Comment on above: Result Comment: The drugs N-Acetylcysteine and Metamizole may falsely depress this assay. Serum Triglycerides Reference Interval Normal <150 mg/dL Borderline high 150 - 199 mg/dL High 200 - 499 mg/dL Very High > or = 500 mg/dL Performed By: #### L 500.4100, L506.1000, L100.0100, L501.9985, L500.4050, L501.9520 #### [facility] [address] [place], [address] Thyroid Stim Hormone (TSH)on 09-05-2024 TSH 2.440 uIU/mL Normal 0.358-3.740 [facility] Comment on above: Performed By: #### L 500.4100, L506.1000, L100.0100, L501.9985, L500.4050, L501.9520 #### [facility] [address] [place], [address] Vitamin D,25 Hydroxyon 09-05 Vitamin D 25-OH 37.7 ng/mL Normal [facility] Comment on above: Result Comment: Tricia min D 25(OH) Status Range Deficiency <20 ng/mL (50nmol/L) Insufficiency 20 - 30 ng/mL (50 - 75 nmol/L) Sufficiency 30 - 100 ng/mL (75 - 250 nmol/L) Toxicity >100 ng/mL (>250 nmol/L) Performed By: #### L 500.4100, L506.1000, L100.0100, L501.9985, L500.4050, L501.9520 #### [facility] [address] [place], [address] Urgent Care Visit Reporton 1 10-07-2023 Urgent Care Visit Report [facility] [address], [address] [place], [place] [address] OFFICE VISIT Date of Service: 08/06/24 MR#: [id number] Acct: [id number] Name: NILE SIERRA Rep #: [id number] : 1950 Provider: LEBRON Cortez Age/Sex: 74/F Location: [facility] Status: Signed Intake Vital Signs 12/30/20 00:54 08/06/24 10:38 Height 5 ft 4 in 5 ft 4 in Weight: 200 lb BMI 34.3 BP 142/92 H Position Sitting Pulse 80 Pulse Oximetry (%) 98 Oxygen Delivery Method room air Intake Visit Reasons: R HAND LACERATION Accompanied by: Self Allergies adhesive tape Allergy (Verified 08/06/24 10:38) Rash Penicillins (PCN) Allergy (Verified 08/06/24 10:38) Hives Medications ???Medication ???Instructions ???Recorded ???Confirmed ???Type atorvastatin 10 mg tablet 10 mg PO QHS 05/12/15 08/06/24 History metoprolol tartrate 50 mg tablet 50 mg PO BID heart 05/12/15 08/06/24 History aspirin 81 mg tablet,delayed 81 mg PO DAILY@0800 heart health 05/25/20 08/06/24 History release cholecalciferol (vitamin D3) 50 1,000 unit PO DAILY supplement 05/25/20 08/06/24 History mcg (2,000 unit) capsule metformin 500 mg tablet 500 mg PO BID 08/06/24 08/06/24 History Have you fallen in the past year?: No Nurse's Note: Patient cut her right thumb tip today on a mandolin cutting board. patient last Tdap was 8-10 years ago. [facility] Medical History (Updated 08/06/24 @ 12:15 by LEBRON Russ) Laceration of right thumb GERD (gastroesophageal reflux disease) Sleep apnea History of tumor High cholesterol Hypertension Hernia Diabetes Surgical History (Updated 01/12/21 @ 12:[address] Radha Alfaro MD) History of incisional hernia repair History of hernia surgery History of cholecystectomy H/O: hysterectomy History of bilateral hip replacements Social History Smoking Status: Never smoker HPI HPI Details: NILE SIERRA, is a 74 F who presents to the office today for initial evaluation of nonclinic for right thumb laceration suffered while preparing food and cutting on a mandala. She noticed immediate bleeding from the same though no loss of sensation or strength or function at injury site. Unknown last Td. [id number]. No abaf-qwi-umittpp products taken to assist. No other associated symptoms and no other alleviating/aggravat ing factors. ROS Const Constitutional: No other (As above) Exam Const General: cooperative, healthy appearing and no acute distress Nutritional Appearance: average body habitus Orientation: alert and awake Resp Effort Inspection: normal respiratory effort and able to speak in complete sentences Cardio Rate: regular rate Pulses: radial pulses present Skin General: no rashes or lesions noted Trauma: laceration (2.0 cm dermal depth right thumb; see procedure) Neuro General: patient alert, patient awake and patient oriented x3 Cognition: normal cognition Speech: speech normal Extrem General: full ROM, capillary refill normal and normal exam except as noted (See procedure) Psych Appearance: grossly normal Mental Status: mental status grossly normal Mood: congruent mood Affect: normal affect Speech and Movement: speech and movement normal Attitude: cooperative Office Procedures Laceration Repair Procedure performed by: Marvel Paredes Explained risks and benefits to parent: Yes Informed consent given: Yes Consent signed: No (Verbal consent given) Sedation: No Anesthesia: 2% lidocaine (Field block 1 mL) Irrigation: saline Preparation: chlorhexidine Wound exploration: none Deep closure: No Skin closure: nylon (4-0 Ethilon nylon x 4 SI) Topical treatment: mupiricin Tetanus toxoid ordered: Yes Patient tolerated procedure: well Complications: No Immunizations Boostrix Tdap 2.5 Lf unit-8 mcg-5 Lf/0.5 mL intramuscular syringe Performing Provider: LEBRON Russ Performing Location: [facility] Administered by: Angie Blank MA on 08/06/24 11:16 Dose Route Admin Location Dispensed Lot Number Expiration Date NDC Man ufacturer 0.5 mL IM Right Deltoid 0.5 mL [id number] 07/06/26 13358-182-77 [employer] VIS Given Date VIS Provided VIS Publication Date 08/06/24 Single Vaccine 21 Eligibility Eligibility Date Funding Source Not Applicable Coding Level of Care Code 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 Twice daily wound care as instructed today. Tdap updated today. Follow-up with PCP or the [facility] in 7 to 10 days for reassessment and likely suture removal, sooner lan (more content not included)... Normal [facility] Dexa Bone Density Studyon Dexa Bone Density Study [facility] Imaging Services [address] [place], [place] [address] Dexa Bone Density Study MR#: [id number] Acct: [id number] Name: NILE SIERRA Rep #: [id number] : 1950 F 74 From: Johnathan escobedo MD PCP: Dr. King Esparza MD Status: REG CLI Study: Dexa Bone Density Study Date of Exam: 03/28/24 Exam# [id number] Ordering Dr: King Esparza MD [id number] STUDY: DUAL ENERGY X-RAY ABSORPTIOMETRY / DXA REASON FOR EXAM: Female, 74 years old. Z78.0 TECHNIQUE: Bone Mineral Density (BMD) measurements of lumbar spine and right forearm were obtained. COMPARISON: None. FINDINGS: Lumbar Spine (L1-L4): g/cm2 (1.444) / T-score (3.7) / Z-score (6.0) Findings are suggestive of normal bone density with a low fracture risk. Right Forearm: g/cm2 (0.620) / T-score (0.8) / Z-score (3.1) BD/Dexa Bone Density Study IMPRESSION: The patient is considered normal as outlined below according to World Benny Organization (WHO) criteria with a low fracture risk. Reference Information: The T-score is the number of standard deviations above or below the standard which is normal for young adults at their peak bone mineral density. The World Health Organization (WHO) interprets the T-scores as follows: Above -1 Normal bone density Between -1 and -2.5 Osteopenia Equal to / or below -2.5 Osteoporosis As a practical clinical guideline, osteopenia may be graded as follows: Mild -1 through -1.5 Moderate -1.6 through -2.0 Severe -2.1 through -2.4 The Z-score is the number of standard deviations above or below age-matched controls. A Z-score of less than -1.5 would be considered abnormal. References: 1. NIH Osteoporosis and Related Bone Diseases www osteo.org 2. International Society for Clinical Densitometry www iscd.org 3. National Osteoporosis Foundation www nof.org Electronically Signed: Johnathan Watson MD at 15:11 EDT , CC: Dr. King Esparza MD [employer] Tester: Signed Normal [facility] SCRN MAMM (CAD)W/TYRON Dockery n 03-28-2024 SCRN MAMM (CAD)W/TYRON [place] Imaging Services [address] [place] [address] SCRN MAMM (CAD)W/TYRON BILAT MR#: [id number] Acct: [id number] Name: NILE SIERRA Rep #: [id number] : 1950 F 74 From: Johnathan escobedo MD PCP: Dr. King Esparza MD Status: [facility] Study: SCRN MAMM (CAD)W/TYRON BILAT Date of Exam: 09/20 Exam# [id number] Ordering Dr: King Esparza MD [id number] MAMMOGRAPHY - BILATERAL SCREENING REASON FOR EXAM: Female, 74 years old. Routine annual screening examination. PERTINENT HISTORY: Mother with breast cancer. TECHNIQUE: Digital bilateral breast tyron (3D mammographic acquisition) in the CC and MLO projections. 2-D mediolateral oblique (MLO) and craniocaudad (CC) views of both breasts were obtained. CAD: Full Field Digital Mammography with Computer Added Detection was performed. COMPARISON: Comparison is made with prior study dated March 25, 2022 and February 13, 2020. FINDINGS: Breast Composition: There are scattered areas of fibroglandular density. There are no dominant masses or suspicious calcifications. Stable scattered bilateral secretory calcifications. Stable bilateral fat-containing axillary lymph nodes. No other significant abnormalities are identified. There has been no significant change since the prior study. BI/SCRN MAMM (CAD)W/TYRON BILAT IMPRESSION: Stable bilateral screening mammogram. Yearly follow-up mammogram recommended. (A) ASSESSMENT CATEGORY: BIRADS Category 2: Benign. A letter regarding these results will be sent to the patient by the facility within 30 days. Approximately 10% of breast cancers are not detected by mammography. A normal mammogram should not delay biopsy of a clinically suspicious abnormality. [id number] Electronically Signed: Johnathan Watson MD at 11:08 EDT , CC: Dr. King Esparza MD [employer] Tester: Signed Normal [facility] Absolute lymphocyte countOrd ered By: King Esparza on 08-15-2023 Lymphocytes Auto (Unsp spec) [#/Vol] 2.72 10*3/uL 0.83-4.51 [facility] Basophil percentageOrdered B y: King Esparza on 08-15-2023 Basophils/100 WBC (Bld) 0.7 % 0-1 [facility] Bilirubin [Mass/Vol] 0.40 mg/dL 0.20-1.00 [facility] Comment on above: For patients on eltr ombopag therapy, use of Dimension [place] TBIL is not recommended. Chloride [Moles/Vol] 106 mmol/L 98-107 [facility] Eosinophils/100 WBC (Bld) 1.4 % 0-5 [facility] Glucose [Mass/Vol] 131 mg/dL 74-106 [facility] Comment on above: Fasting Glucose resu lt greater than or equal to 126 mg/dL suggests DIABETES MELLITUS per A.D.A. criteria. Neutrophils (Bld) [#/Vol] 5.7 10*3/uL 2.0-7.7 [facility] Neutrophils/100 WBC (Bld) 59.8 % 47-70 [facility] Potassium [Moles/Vol] 3.9 mmol/L 3.5-5.1 [facility] Protein [Mass/Vol] 7.3 g/dL 6.4-8.2 [facility] Sodium [Moles/Vol] 139 mmol/L 136-145 [facility] WBC (Bld) [#/Vol] 9.5 10*3/uL 4.4-11.0 [facility] Blood erythrocytes count (nu mber/volume)Ordered By: King Esparza on 08-15-2023 RBC (Bld) [#/Vol] 4.97 10*6/uL 4.2-5.4 [facility] Blood hemoglobin measurement (mass/volume)Ordered By: King Esparza on 08-15-2023 Hemoglobin (Bld) [Mass/Vol] 14.1 g/dL 12.0-15.0 [facility] Blood lymphocytes/100 leukoc ytesOrdered By: King Esparza on 08-15-2023 Lymphocytes/100 WBC (Bld) 28.8 % 19-41 [facility] Blood monocytes/100 leukocyt esOrdered By: King Esparza on 08-15-2023 Monocytes/100 WBC (Bld) 8.9 % 0-10 [facility] Blood platelet mean volumeOr dered By: King Esparza on 08-15-2023 Platelet mean volume (Bld) [Entitic vol] 9.3 fL 6.2-12.0 [facility] Determination of erythrocyte mean corpuscular volume (MCV)Ordered By: King Esparza on 08-15-2023 MCV (RBC) [Entitic vol] 86.7 fL 81-99 [facility] Hematocrit Auto (Bld) [Volum e fraction][facility]2023 Hematocrit (Bld) [Volume fraction] 43.1 % 37-47 [facility] - Chemistry and C hemistry - challengeOrdered By: King Esparza on 08-15-2023 ALP [Catalytic activity/Vol] 89 U/L 45-117 [facility] ALT [Catalytic activity/Vol] 29 U/L 13-56 [facility] CO2 [Moles/Vol] 25.0 mmol/L 21.0-32.0 [facility] Globulin (S) [Mass/Vol] 3.5 g/dL 2.2-4.2 [facility] Urea nitrogen/Creatinine [Mass ratio] 16.2 mg/mg 10-20 [facility] - Hematology and Cell countsOrdered By: King Esparza on 08-15-2023 Erythrocyte distribution width (RBC) [Entitic vol] 41.8 fL 35.1-43.9 [facility] Erythrocyte distribution width (RBC) [Ratio] 13.2 % 11.6-14.6 [facility] Immature granulocytes/100 WBC (Bld) 0.400 % 0.0-0.9 [facility] Comment on above: IG% - Immature Granu locytes (promyelocytes, myelocytes and metamyelocytes) > 1% indicates that a LEFT SHIFT is Present. MCH (RBC) [Entitic mass] 28.4 pg 27.0-32.0 [facility] Nucleated RBC/100 WBC (Bld) [Ratio] 0 % 0-5 [facility] MCHC Auto (RBC) [Mass/Vol]Or dered By: King Esparza on 08-15-2023 MCHC (RBC) [Mass/Vol] 32.7 g/dL 32-36 [facility] No Panel InformationOrdered By: King Esparza on 08-15-2023 Estimated GFR (MDRD) Amer 109 mL/min >60 [facility] Comment on above: GFR Calc Estimated GFR (MDRD) Non-Af Amer 90 mL/min >60 [facility] Comment on above: Non- GFR Calc Thyroid Stimulating Hormone (TSH) 2.30 uIU/mL 0.358-3.74 [facility] Vitamin D 25-Hydroxy 38.1 ng/mL [facility] Comment on above: Vitamin D 25(OH) Sta tus Range Deficiency <20 ng/mL (50nmol/L) Insufficiency 20 - 30 ng/mL (50 - 75 nmol/L) Sufficiency 30 - 100 ng/mL (75 - 250 nmol/L) Toxicity >100 ng/mL (>250 nmol/L) Platelets bldOrdered By: King Esparza on 08-15-2023 Platelets (Bld) [#/Vol] 358 10*3/uL 150-450 [facility] Serum or plasma albumin fernando urement (mass/volume)Ordered By: King Esparza on 08-15-2023 Albumin [Mass/Vol] 3.8 g/dL 3.2-5.0 [facility] Serum or plasma albumin/glob ulin mass ratioOrdered By: King Esparza on 08-15-2023 Albumin/Globulin [Mass ratio] 1.1 {ratio} 0.9-2.4 [facility] Serum or plasma calcium fernando urement (mass/volume)Ordered By: King Esparza on 08-15-2023 Calcium [Mass/Vol] 8.8 mg/dL 8.5-10.1 [facility] Serum or plasma creatinine m easurement (mass/volume)Ordered By: King Esparza on 08-15-2023 Creatinine [Mass/Vol] 0.68 mg/dL 0.55-1.02 [facility] Comment on above: The validity of the calculated GFR & GFRAA in patients over 70 years has not been determined. Clinical correlation is essential. Serum or plasma urea nitroge n measurement (mass/volume)Ordered By: King Esparza on 08-15-2023 Urea nitrogen [Mass/Vol] 11 mg/dL 7-18 [facility] Thin prep Papanicolaou smear with manual screeningOrdered By: King Esparza on 08-15-2023 Thin prep Papanicolaou smear with manual screening 22 U/L 15-37 [facility] Thin prep Papanicolaou smear with manual screening 8 5-15 [facility] Absolute lymphocyte countOrd ered By: King Esparza on 02-20-2023 Lymphocytes Auto (Unsp spec) [#/Vol] 2.33 10*3/uL 0.83-4.51 [facility] Basophil percentageOrdered B y: King Esparza on 02-20-2023 Basophils/100 WBC (Bld) 0.5 % 0-1 [facility] Bilirubin [Mass/Vol] 0.30 mg/dL 0.20-1.00 [facility] Comment on above: For patients on eltr ombopag therapy, use of Dimension [place] TBIL is not recommended. Chloride [Moles/Vol] 107 mmol/L 98-107 [facility] Eosinophils/100 WBC (Bld) 1.5 % 0-5 [facility] Glucose [Mass/Vol] 121 mg/dL 74-106 [facility] Comment on above: Fasting Glucose resu lt from 100 to 125 mg/dL suggests IMPAIRED HOMEOSTASIS per A.D.A. criteria. Neutrophils (Bld) [#/Vol] 5.2 10*3/uL 2.0-7.7 [facility] Neutrophils/100 WBC (Bld) 61.3 % 47-70 [facility] Potassium [Moles/Vol] 4.2 mmol/L 3.5-5.1 [facility] Protein [Mass/Vol] 7.3 g/dL 6.4-8.2 [facility] Sodium [Moles/Vol] 139 mmol/L 136-145 [facility] WBC (Bld) [#/Vol] 8.5 10*3/uL 4.4-11.0 [facility] Blood erythrocytes count (nu mber/volume)Ordered By: King Esparza on 02-20-2023 RBC (Bld) [#/Vol] 5.07 10*6/uL 4.2-5.4 [facility] Blood hemoglobin measurement (mass/volume)Ordered By: King Esparza on 02-20-2023 Hemoglobin (Bld) [Mass/Vol] 14.8 g/dL 12.0-15.0 [facility] Blood lymphocytes/100 leukoc ytesOrdered By: King Esparza on 02-20-2023 Lymphocytes/100 WBC (Bld) 27.5 % 19-41 [facility] Blood monocytes/100 leukocyt esOrdered By: King Esparza on 02-20-2023 Monocytes/100 WBC (Bld) 9.0 % 0-10 [facility] Blood platelet mean volumeOr dered By: King Esparza on 02-20-2023 Platelet mean volume (Bld) [Entitic vol] 8.8 fL 6.2-12.0 [facility] Determination of erythrocyte mean corpuscular volume (MCV)Ordered By: King Esparza on 02-20-2023 MCV (RBC) [Entitic vol] 87.0 fL 81-99 [facility] Hematocrit Auto (Bld) [Volum e fraction]Ordered By: King Esparza on 02-20-2023 Hematocrit (Bld) [Volume fraction] 44.1 % 37-47 [facility] - Chemistry and C hemistry - challengeOrdered By: King Esparza on 02-20-2023 ALP [Catalytic activity/Vol] 78 U/L 45-117 [facility] ALT [Catalytic activity/Vol] 25 U/L 13-56 [facility] CO2 [Moles/Vol] 26.0 mmol/L 21.0-32.0 [facility] Globulin (S) [Mass/Vol] 3.4 g/dL 2.2-4.2 [facility] Urea nitrogen/Creatinine [Mass ratio] 19.0 mg/mg 10-20 [facility] Laboratory - Hematology and Cell countsOrdered By: King Esparza on 02-20-2023 Erythrocyte distribution width (RBC) [Entitic vol] 42.9 fL 35.1-43.9 [facility] Erythrocyte distribution width (RBC) [Ratio] 13.7 % 11.6-14.6 [facility] Immature granulocytes/100 WBC (Bld) 0.200 % 0.0-0.9 [facility] Comment on above: IG% - Immature Granu locytes (promyelocytes, myelocytes and metamyelocytes) > 1% indicates that a LEFT SHIFT is Present. MCH (RBC) [Entitic mass] 29.2 pg 27.0-32.0 [facility] Nucleated RBC/100 WBC (Bld) [Ratio] 0 % 0-5 [facility] MCHC Auto (RBC) [Mass/Vol]Or dered By: King Esparza on 02-20-2023 MCHC (RBC) [Mass/Vol] 33.6 g/dL 32-36 [facility] No Panel InformationOrdered By: King Esparza on 02-20-2023 Estimated GFR (MDRD) Amer 108 mL/min >60 [facility] Comment on above: GFR Calc Estimated GFR (MDRD) Non-Af Amer 89 mL/min >60 [facility] Comment on above: Non- GFR Calc Thyroid Stimulating Hormone (TSH) 2.01 uIU/mL 0.358-3.74 [facility] Vitamin D 25-Hydroxy 48.9 ng/mL [facility] Comment on above: Vitamin D 25(OH) Sta tus Range Deficiency <20 ng/mL (50nmol/L) Insufficiency 20 - 30 ng/mL (50 - 75 nmol/L) Sufficiency 30 - 100 ng/mL (75 - 250 nmol/L) Toxicity >100 ng/mL (>250 nmol/L) Platelets bldOrdered By: King Esparza on 02-20-2023 Platelets (Bld) [#/Vol] 338 10*3/uL 150-450 [facility] Serum or plasma albumin fernando urement (mass/volume)Ordered By: King Esparza on 02-20-2023 Albumin [Mass/Vol] 3.9 g/dL 3.2-5.0 [facility] Serum or plasma albumin/glob ulin mass ratioOrdered By: King Esparza on 02-20-2023 Albumin/Globulin [Mass ratio] 1.1 {ratio} 0.9-2.4 [facility] [facility] [place] Serum or plasma calcium fernando urement (mass/volume)Ordered By: King Esparza on 02-20-2023 Calcium [Mass/Vol] 9.4 mg/dL 8.5-10.1 [facility] Serum or plasma creatinine m easurement (mass/volume)Ordered By: King Isaias on 02-20-2023 Creatinine [Mass/Vol] 0.68 mg/dL 0.55-1.02 [facility] Comment on above: The validity of the calculated GFR & GFRAA in patients over 70 years has not been determined. Clinical correlation is essential. Serum or plasma urea nitroge n measurement (mass/volume)Ordered By: King Isaias on 02-20-2023 Urea nitrogen [Mass/Vol] 13 mg/dL 7-18 [facility] Thin prep Papanicolaou smear with manual screeningOrdered By: King Isaias on 02-20-2023 Thin prep Papanicolaou smear with manual screening 20 U/L 15-37 [facility] Thin prep Papanicolaou smear with manual screening 6 5-15 [facility] Absolute lymphocyte counton 02-17-2022 Lymphocytes Auto (Unsp spec) [#/Vol] 2.38 10*3/uL 0.83-4.51 [facility] Work Phone: Basophil percentageon 2021 Basophils/100 WBC (Bld) 0.5 % 0-1 [facility] Work Phone: Bilirubin [Mass/Vol] 0.40 mg/dL 0.20-1.00 [facility] Work Phone: Comment on above: For patients on eltr ombopag therapy, use of Dimension [place] TBIL is not recommended. Chloride [Moles/Vol] 104 mmol/L 98-107 [facility] Work Phone: Eosinophils/100 WBC (Bld) 1.1 % 0-5 [facility] Work Phone: Glucose [Mass/Vol] 128 mg/dL 74-106 [facility] Work Phone: Comment on above: Fasting Glucose resu lt greater than or equal to 126 mg/dL suggests DIABETES MELLITUS per A.D.A. criteria. Neutrophils (Bld) [#/Vol] 5.5 10*3/uL 2.0-7.7 [facility] Work Phone: Neutrophils/100 WBC (Bld) 60.5 % 47-70 [facility] Work Phone: Potassium [Moles/Vol] 3.7 mmol/L 3.5-5.1 [facility] Work Phone: Protein [Mass/Vol] 7.3 g/dL 6.4-8.2 [facility] Work Phone: Sodium [Moles/Vol] 136 mmol/L 136-145 [facility] Work Phone: WBC (Bld) [#/Vol] 9.1 10*3/uL 4.4-11.0 [facility] Work Phone: Blood erythrocytes count (nu mber/volume)on 02-17-2022 RBC (Bld) [#/Vol] 4.79 10*6/uL 4.2-5.4 [facility] Work Phone: Blood hemoglobin measurement (mass/volume)on 02-17-2022 Hemoglobin (Bld) [Mass/Vol] 13.9 g/dL 12.0-15.0 [facility] Work Phone: Blood lymphocytes/100 leukoc yteson 02-17-2022 Lymphocytes/100 WBC (Bld) 26.1 % 19-41 [facility] Work Phone: Blood monocytes/100 leukocyt eson 02-17-2022 Monocytes/100 WBC (Bld) 10.7 % 0-10 [facility] Work Phone: Blood platelet mean volumeon 02-17-2022 Platelet mean volume (Bld) [Entitic vol] 9.5 fL 6.2-12.0 [facility] Work Phone: Determination of erythrocyte mean corpuscular volume (MCV)on 02-17-2022 MCV (RBC) [Entitic vol] 86.0 fL 81-99 [facility] Work Phone: Hematocrit Auto (Bld) [Volum e fraction]on 02-17-2022 Hematocrit (Bld) [Volume fraction] 41.2 % 37-47 [facility] Work Phone: Laboratory - Chemistry and C hemistry - challengeon 02-17-2022 ALP [Catalytic activity/Vol] 72 U/L 45-117 [facility] Work Phone: ALT [Catalytic activity/Vol] 32 U/L 13-56 [facility] Work Phone: CO2 [Moles/Vol] 24.0 mmol/L 21.0-32.0 [facility] Work Phone: Globulin (S) [Mass/Vol] 3.5 g/dL 2.2-4.2 [facility] Work Phone: Urea nitrogen/Creatinine [Mass ratio] 22.7 mg/mg 10-20 [facility] Work Phone: Laboratory - Hematology and Cell countson 02-17-2022 Erythrocyte distribution width (RBC) [Entitic vol] 42.6 fL 35.1-43.9 [facility] Work Phone: Erythrocyte distribution width (RBC) [Ratio] 13.5 % 11.6-14.6 [facility] Work Phone: Immature granulocytes/100 WBC (Bld) 1.100 % 0.0-0.9 [facility] Work Phone: Comment on above: IG% - Immature Granu locytes (promyelocytes, myelocytes and metamyelocytes) > 1% indicates that a LEFT SHIFT is Present. MCH (RBC) [Entitic mass] 29.0 pg 27.0-32.0 [facility] Work Phone: Nucleated RBC/100 WBC (Bld) [Ratio] 0 % 0-5 [facility] Work Phone: MCHC Auto (RBC) [Mass/Vol]on 02-17-2022 MCHC (RBC) [Mass/Vol] 33.7 g/dL 32-36 [facility] Work Phone: No Panel Informationon 02-17 Estimated GFR (MDRD) Amer 122 mL/min >60 [facility] Work Phone: Comment on above: GFR Calc Estimated GFR (MDRD) Non-Af Amer 101 mL/min >60 [facility] Work Phone: Comment on above: Non- GFR Calc Thyroid Stimulating Hormone (TSH) 2.37 uIU/mL 0.358-3.74 [facility] Work Phone: Vitamin D 25-Hydroxy 30.0 ng/mL [facility] Work Phone: Comment on above: Vitamin D 25(OH) Sta tus Range Deficiency <20 ng/mL (50nmol/L) Insufficiency 20 - 30 ng/mL (50 - 75 nmol/L) Sufficiency 30 - 100 ng/mL (75 - 250 nmol/L) Toxicity >100 ng/mL (>250 nmol/L) Platelets bldon 02-17-2022 Platelets (Bld) [#/Vol] 342 10*3/uL 150-450 [facility] Work Phone: Serum or plasma albumin fernando urement (mass/volume)on 02-17-2022 Albumin [Mass/Vol] 3.8 g/dL 3.2-5.0 [facility] Work Phone: Serum or plasma albumin/glob ulin mass ratioon 02-17-2022 Albumin/Globulin [Mass ratio] 1.1 {ratio} 0.9-2.4 [facility] Work Phone: Serum or plasma calcium fernando urement (mass/volume)on 02-17-2022 Calcium [Mass/Vol] 8.7 mg/dL 8.5-10.1 [facility] Work Phone: Serum or plasma creatinine m easurement (mass/volume)on 02-17-2022 Creatinine [Mass/Vol] 0.62 mg/dL 0.55-1.02 [facility] Work Phone: Comment on above: The validity of the calculated GFR & GFRAA in patients over 70 years has not been determined. Clinical correlation is essential. Serum or plasma urea nitroge n measurement (mass/volume)on 02-17-2022 Urea nitrogen [Mass/Vol] 14 mg/dL 7-18 [facility] Work Phone: Thin prep Papanicolaou smear with manual screeningon 02-17-2022 Thin prep Papanicolaou smear with manual screening 25 U/L 15-37 [facility] Work Phone: Thin prep Papanicolaou smear with manual screening 8 5-15 [facility] Work Phone: Encounters Encounter Date Encounter Type Care Provider Facility Start: 03-31-2025 ambulatory [facility] Facility:[facility] Start: 03-10-2025 End: 03-10-[address] King Esparza MD Work Phone: -Laboratory Phy Office 3rd Flr Start: 03-10-2025 End: 03-10-[address] King Esparza MD -Laboratory Phy Office 3rd Flr Start: 03-10-2025 End: 03-10-2025 ambulatory King Chi Isaias Facility:[facility] Start: 09-05-2024 End: 09-05-2024 ambulatory [facility] Isaias Facility:[facility] Start: 08-06-2024 End: 08-06-2024 ambulatory King Chi Isaias Facility:[facility] Start: 03-28-2024 End: 03-28-2024 ambulatory [facility] Isaias Facility:[facility] Start: 08-15-2023 End: 08-15-2023 ambulatory [facility] Work Phone: Start: 08-15-2023 End: 08-15-2023 Patient encounter procedure [facility]-Laboratory, Phy Office 3rd Flr Start: 02-20-2023 End: 02-20-2023 ambulatory [facility] Work Phone: Start: 02-20-2023 End: 02-20-2023 Patient encounter procedure [facility]-Laboratory Work Phone: Start: 03-25-2022 End: 03-25-2022 Patient encounter procedure [facility]-Outpatient Breast Imaging Start: 02-17-2022 End: 02-17-2022 Patient encounter procedure [facility]-Laboratory, Phy Office 3rd Flr Procedures Date Procedure Procedure Detail Performing Clinician Start: 03-10-2025 Plain x-ray of pelvi s and lower extremity Dr. King Esparza MD Work Phone: Start: 03-10-2025 X-ray of lumbosacral spine Dr. King Esparza MD Work Phone: Start: 03-25-2022 Screening mammography Immunizations Immunization Date Immunization Notes Care Provider Fa cility 08-06-2024 tetanus toxoid, redu gerri diphtheria toxoid, and acellular pertussis vaccine, adsorbed Dr. King Esparza MD Work Phone: [facility] 11-24-2020 Covid (Pfizer) [facility] 11-03-2020 Covid (Pfizer) [facility] 06-28-2015 influenza, injectabl e, quadrivalent, preservative free [facility] 06-28-2015 influenza, seasonal, injectable [facility] Payers Date Payer Category Payer Self-pay [id number] 2024 Unknown [id number] 2016 Unknown [id number] 2015 Medicare [id number] Unknown SELF PAY INSURANCE [id number] Unknown [id number] Unknown [id number] Unknown [id number] Unknown [id number] Unknown [id number] [id number] Social History Date Type Detail Facility Start: 12-30-2020 End: 12-30-2020 Tobacco smoking status NHIS Unknown if ever smoked [facility] Start: 12-30-2020 Non-smoker [facility] Start: 1950 Sex Assigned At Female [facility] Start: 12-30-2020 Tobacco smoking stat us SCIS Never smoked tobacco (finding) [facility] Radiology Diagnostic study note 03-10-2025 Note Date & Type Note Facility 03-10-2025 Radiology Diagnostic study note [facility] Imaging Services [address] [place], [place] [address] L/S Spine Min 4 Views MR#: [id number] Acct: [id number] Name: NILE SIERRA Rep #: [id number] : 1950 F 75 From: Samuel Jones DO PCP: Dr. King Esparza MD Status: CHARLENE STEEN Study:L/S Spine Min 4 Views Date of Exam: 03/10/25 Exam# [id number] Ordering Dr: King Esparza MD PROCEDURE: L/S SPINE MIN 4 VIEWS 03/10/2025 REASON FOR EXAM: RIGHT SIDE SCIATICA TECHNIQUE: L/S SPINE MIN 4 VIEWS COMPARISON: None FINDINGS: Four views of the lumbosacral spine demonstrate 5 lumbar-type vertebral bodies below the last set of paired ribs. There is approximately 2 mm of retrolisthesis of L4 in relationship to L5 and 2 mm of retrolisthesis of L3 in relationship to L4. Degenerative changes of the lumbar spine are noted. There is juxta articular sclerosis involving the inferior endplate of the L2 vertebral body and superior endplate of the L3 vertebral body. Degenerative disc disease is seen involving the L2-L3, L3-L4, L4-L5 and L5-S1 levels. This is most pronounced at the L2-L3 level. Mild arteriosclerotic vascular disease of the aorta is noted. Moderate amount of stool and gas is present in the visualized portions of the colon RAD/L/S Spine Min 4 Views IMPRESSION: MRI of the lumbar spine may be of value for further evaluation of the juxta-articular sclerosis involving the inferior endplate of the L2 vertebral body and superior endplate of the L3 vertebral body. This will also further evaluate the disc spaces and nerve roots if clinically warranted. Reading Location: [id number] CC: Dr. King Esparza MD ~ [employer]: Signed [facility] Radiology Diagnostic study note 03-10-2025 Note Date & Type Note Facility 03-10-2025 Radiology Diagnostic study note [facility] Imaging Services [address] [place] [address] [id number] HIP, UNI W/ Pelvis 2-3 Views MR#: [id number] Acct: [id number] Name: NILE SIERRA Rep #: [id number] : 1950 F 75 From: Samuel Jones DO PCP: Dr. King Esparza MD Status: REG C ENIO Study:HIP, UNI W/ Pelvis 2-3 Views Date of Ex am: 03/10/25 Exam# [id number] Ordering Dr: King Esparza MD PROCEDURE: HIP, UNI W/ PELVIS 2-3 VIEWS 03/10/2025 REASON FOR EXAM: RIGHT SIDE SCIATICA TECHNIQUE: HIP, UNI W/ PELVIS 2-3 VIEWS COMPARISON: None FINDINGS: Bones: There are no fractures or dislocations. Joints: The right prosthetic hip device appears to be in satisfactory position without evidence of fracture or loosening. The visualized portion of the left prosthetic device appears to be in satisfactory position without evidence of fracture or loosening. Please note that the distal portion is not included on this study. Mild arthritic changes are seen involving the SI joints and pubic symphysis. Soft tissues: Unremarkable. Other: Mild degenerative changes of the lower lumbar spine are noted. The visualized sacrum is unremarkable. RAD/HIP, UNI W/ Pelvis 2-3 Views IMPRESSION: Both prosthetic hip devices appear to be in satisfactory position without evidence of fracture or loosening as described above. Degenerative changes lower lumbar spine. Degenerative changes bilateral SI joints and pubic symphysis. No acute fractures or dislocations. Reading Location: [id number] CC: Dr. King Esparza MD ~ [employer]: Signed [facility] Evaluation note Note Date & Type Note Facility Evaluation note No assessment information availa [facility] Work Phone: Reason for referral (narrative) Note Date & Type Note Facility Reason for referral (narrative) No reason for referral information available [facility] Work Phone: Chief Complaint and Reason for Visit Chief Complaint LABWORK Chief Complaint LABWORK SCREENING Chief Complaint Type 2 diabetes vivian itus with hyperglycemia Advance Directives No Advanced Directives Records Found Advance Directive Response Recorded Date/ Time Advance Directives No January 12 6 4:58pm Living Will Yes December 30, 2020 12 :56am Power of Consumer Relations Complaint Clerk Yes December 30, 2020 12:56am Advance Directive Response Recorded Date/ Time Advance Directives No January 12 6 3:58pm Living Will Yes December 29, 2020 11 :56pm Power of Consumer Relations Complaint Clerk Yes December 29, 2020 11:56pm Advance Directive Response Recorded Date/ Time Advance Directives No January 12 6 4:58pm Summary Purpose Family History No Family History Records Found Additional Source Comments Goals (unrecognized section and content) Goals may be documented in a n alternate sectionGoals may be documented in an alternate sectionGoals may be documented in an alternate sectionGoals may be documented in an alternate sectionGoals may be documented in an alternate section Care Teams (unrecognized sec tion and content) Team Status: Active Member Role Status Dates Dr. King Esparza MD Family Provider Active Dr. King Esparza MD Primary Care Provider Active Team Status: Inactive Member Role Status Dates Dr. King Esparza MD Primary Care Provi sherly, Attending Provider, Referring Provider Active Team Status: Inactive Member Role Status Dates Dr. King Esparza MD Primary Care Provider, Attending Provider Active Team Status: Active Member Role/Relationship Status Dates Dr. King Esparza MD Family Provider Active Dr. King Esparza MD Primary Care Provider Active Team Status: Inactive Member Role/Relationship Status Dates Dr. King Esparza MD Primary Care Provider Active Start: March 10, 2025 End: March 10, 2025 Dr. King Esparza MD Attending Provider Active Start: March 10, 2025 End: March 10, 2025 Dr. King Esparza MD Referring Provider Active Start: March 10, 2025 End: March 10, 2025 INFORMATION SOURCE (unrecogn ized section and content) DATE CREATED AUTHOR 03/20/2025 [facility] FOR RECORDS PERTAINING TO PATIENTS WHO ARE OR HAVE BEEN ENROLLED IN A CHEMICAL DEPENDENCY/SUBSTANCEABUSE PROGRAM, SOME INFORMATION MAY BE OMITTED. This clinical summary was aggregated from multiple sources. Caution should be exercised in using it in the provision of clinical care. This summary normalizes information from multiple sources, and as a consequence, information in this document may materially change the coding, format and clinical context of patient data. In addition, data may be omitted in some cases. CLINICAL DECISIONS SHOULD BE BASED ON THE PRIMARY CLINICAL RECORDS. [employer] provides no warranty or guarantee of the accuracy or completeness of information in this document.
== END | disposition home or self-care (01) ==
PROVIDERS: PCP Family Medicine Geriatric Medicine; Referring Provider Family Medicine Geriatric Medicine; Visit Provider Family Medicine Geriatric Medicine
DX: M48.061 Spinal stenosis, lumbar region without neurogenic claudication (principal)
CPT/HCPCS: 72148

== ENCOUNTER 2025-05-13 10:00 | Outpatient (RCR) | payer MEDICARE, SELFPAY ==
--- NOTE | 2025-04-15 14:31 | HP.PTEVAL_ITS ---
Patient's Visit Information Visit Information Visit Information: NILE SIERRA is a 75 year old F referred to Physical Therapy by Dr. King Esparza MD with a diagnosis of LUMBAR SPINAL STENOSIS. Date of Evaluation: 04/15/25 Physical Therapist: Cisco Avery PT, Cert MDT, OCS Visit Plan Frequency: 2x /Week Duration: 4 Weeks Plan: PT INTERVENTIONS DLS ,POSTURAL EX'S ,STRENGTHENING BLE( HIPS ) ,ACTIVITY MODIFICATION AND MODALITIES Subjective Subjective: This 75 y/o female presents to physical therapy with lumbar stenosis . Patient has lumbar pain affecting bilateral legs lateral legs ib November. Patient has h/o TALA bilateral ~[address] Patient seen DR BAUGH ,and pain management May 05.. Patient medication prednisone ,naprosyn ,gabapentin. Patient had MRI L2-3: Severe disc space narrowing is [id number] with diffuse disc osteophyte protrusion. Central stenosis to 10 mm AP.Moderate thickening of ligamentum flavum. Mild facet hypertrophy. Bilateral exit foraminal narrowing. Correlate with L2. radiculopathy.L3-4: Mild loss of disc height. Mild, diffuse disc bulge. Moderate facet hypertrophy and moderate thickening of ligamentum flavum. Borderline central stenosis. Bilateral exit foraminal narrowing. Correlate with L3 radiculopathy. L4-5: Mild loss of disc height mainly posteriorly. Mild, diffuse disc bulge. Severe left ligamentum thickening and moderate right thickening. Moderate left facet hypertrophy and mild right facet hypertrophy. No central stenosis. [id number]-right exit foraminal narrowing. Correlate with L4 radiculopathy. X-rays There is approximately 2 mm of retrolisthesis of L4 in relationship to L5 and 2 mm of retrolisthesis of L3 in relationship to L4.Aggravating factors walk ,stand with cane ~ 15mins ,bedning ,lifting. Alleviating factors sitting ,rest. Worse with sweeping carpet .Pain described ache and stabbing pain. Coughing/sneezing-. Patient uses cane for balance and back pain. Denies paresthesia/tingling-. Patient pain affects sleeping. Patient has no tx in past for back. No injury. Patient condition affects QOL adn function/gait. Goals no pain. SOCIAL: VOACTION: retired Pain Bilateral Back: Pain Intensity (Out of 10): 6 Pain Intensity Range: 9 Bilateral Lower Extremity: Pain Intensity (Out of 10): 5 Pain Intensity Range: 9 Objective Objective: POSTURE: mild forward posture GAIT: ambulates with cane 2 point slow nadia antalgic PALAPTION: tender LS region FLEXABILITY: hamstring min tight MMT: quads/hams 4/5 ,hip flexion /abduction 4-/4 ankle 4/5 LUMBAR ROM: flexion mod loss ,side glides mod loss ,extension mod/severe loss Special Tests L/S Slump test left side: Negative L/S Slump test right side: Negative L/S Left Straight Leg Raise: Negative L/S Right Straight Leg Raise: Negative Lumbar Standing: Flexion - Mechanical Response: No effect Lumbar Standing: Flexion - Symptoms During Testing: Increases Lumbar Standing: Flexion - Symptoms After Testing: No worse Lumbar Standing: Extension - Mechanical Response: No effect Lumbar Standing: Extension - Symptoms During Testing: Increases Lumbar Standing: Extension - Symptoms After Testing: No worse Lumbar Standing: Right Side Glides - Mechanical Response: No effect Lumbar Standing: Right Side [place] - Symptoms During Testing: Increases Lumbar Standing: Right Side [place] - Symptoms After Testing: No worse Lumbar Standing: Left Side [place] - Mechanical Response: No effect Lumbar Standing: Left Side [place] - Symptoms During Testing: Increases Lumbar Standing: Left Side [place] - Symptoms After Testing: No worse Balance/Special Test Scores Oswestry Low Back Score: 29 Goals Goal 1:: Patient to improve lumbar ROM for function of recovery to put on shoes Goal Time Frame: 4-6 Weeks Goal 2:: Patient to be I with HEP to manage BACK PAIN Goal Time Frame: 4-6 Weeks Goal 3:: Patient to improve back oswestry score by 5 points to improve QOL Goal Time Frame: 4-6 Weeks Goal 4:: Patient to demonstrate 50% improvement with less back and leg pain and improved function Goal Time Frame: 4-6 Weeks Goal 5:: Patient to ambulate 20-30 mins with less pain to improve function Goal Time Frame: 4-6 Weeks Rehabilitation Potential Physical Therapy Diagnosis: This patient lumbar stenosis with back and leg symptoms worse with walking/standing ,position and motion testing increases symptoms along with hip weakness thus benefit from skilled PT Rehabilitation Potential: Good Anticipated Interventions Patient/Client Instruction: Educate patient on: Condition and Plan of Care For the Purpose of:: To decrease pain, To increase ROM, To reduce risk of recurrence, To improve decision making, To improve self management, To prevent re-injury and To improve ability to perform tasks related to life management Therapeutic Exercise to Include: Strength training, Postural training, Flexibilty training and Dynamic Lumbar Stabilization Comment: HIPS For the Purpose of:: To decrease pain, To increase ROM, To improve muscle performance and motor function, To improve ability to perform ADL's, To improve performance and independence with ADL's, To improve ability of physical actions for home/community/work/leisure, To improve health of tissue, To decrease soft tissue restriction and To increase flexibility/ROM TENS: Yes IF ES: Yes Cryotherapy (ice pack, ice massage): Yes Thermo therapy (hot pack): Yes Ultrasound (thermal/non thermal): Yes For the Purpose of:: To decrease pain, To improve nutrient delivery to tissue, To increase oxygenation perfusion, To improve health of tissue and To decrease soft tissue restriction Text: Thank you for the opportunity to evaluate your patient. For Medicare and Medicare HMO plans, please review the plan of care and approve it. It will need to be FAXED BACK to us at [phone] for Medicare purposes. For Medicare only, by signing this I certify the plan of care. Please let me know if there are questions or concerns regarding this plan of care. Physician Signature: Date:
--- NOTE | 2025-05-13 10:15 | HP.PTDCSUM ---
Discharge Summary D/C summary: It has been my pleasure to treat NILE SIERRA referred by Dr. King Esparza MD, with the diagnosis of LUMBAR SPINAL STENOSIS for a total of 9 visit(s). Discharge Date: 05/13/25 Please see the following information for a summary of their discharge status. Subjective Subjective: Plan for back injection Not using cane -waking more then 30 mins Pain Bilateral Back: Pain Intensity (Out of 10): 4 Bilateral Lower Extremity: Pain Intensity (Out of 10): 0 Overall Improvement % Improvement: 75 Objective Objective/Function: POSTURE: mild forward posture GAIT: ambulates with cane 2 point slow nadia antalgic PALAPTION: tender LS region FLEXABILITY: hamstring min tight MMT: quads/hams 4/5 ,hip flexion /abduction 4-/4 ankle 4/5 LUMBAR ROM: flexion mod loss ,side glides mod loss ,extension mod/severe loss Goals Goal 1:: Patient to improve lumbar ROM for function of recovery to put on shoes Goal Progress: Goal Met Goal 2:: Patient to be I with HEP to manage BACK PAIN Goal Progress: Goal Met Goal 3:: Patient to improve back oswestry score by 5 points to improve QOL Goal Progress: Goal Met Goal 4:: Patient to demonstrate 50% improvement with less back and leg pain and improved function Goal Progress: Goal Met Goal 5:: Patient to ambulate 20-30 mins with less pain to improve function Plan Plan: d/c to home D/C Information Discharge Comments: HEP d/c sentence: If there are questions or concerns regarding this patient's physical therapy, please feel free to call me at [phone]. Thank you for the referral of this patient. Sincerely, Cisco Avery, PT, Cert MDT, OCS Balance/Gait/Functional tests Balance/Special Test Scores Oswestry Low Back Score: 6 Improvement % Improvement: 75
== END 2025-05-13 13:12 | disposition home or self-care (01) ==
LOC: PT 10:00
PROVIDERS: PCP Family Medicine Geriatric Medicine; Referring Provider Family Medicine Geriatric Medicine; Visit Provider Family Medicine Geriatric Medicine
DX: M48.061 Spinal stenosis, lumbar region without neurogenic claudication (principal); M54.31 Sciatica, right side
CPT/HCPCS: 97110; 97162; 97530